=== PATIENT | female | born 1995 | race Caucasian/White ===

== ENCOUNTER 2018-05-26 23:20 | Outpatient (CLI) | payer OTHER, SELFPAY ==
[2017-02-18 11:46] VITALS: BMI 26.6
[2018-05-26 23:46] VITALS: BMI 27.6
[2018-05-27 00:15] LABS: Hematocrit 37.3 % (37-47); Hemoglobin 12.6 g/dl (12.0-15.0); Mean Corp Hgb Conc 33.8 g/gl (32-36); Mean Corpuscular Hgb 29.7 pg (27.0-32.0); Mean Platelet Vol. 9.8 fl (6.2-12.0); Platelet Count 208 K/mm3 (150-450); RBC Distribution Width CV 13.4 % (11.6-14.6); RBC Distribution Width SD 42.5 fl (35.1-43.9); Red Blood Count 4.24 M/mm3 (4.2-5.4); White Blood Count 9.8 K/mm3 (4.4-11.0)
[2018-05-27 00:17] LABS: Scan Indicated on CBC? Y/N NO
[2018-05-27 00:23] LABS: International Normalized Ratio 0.9; Prothrombin Time (Protime)PT. 12.4 SECONDS (11.7-14.9)
[2018-05-27 00:24] LABS: Partial Thromboplast Time 25.3 Seconds (24.1-36.2)
[2018-05-27 00:38] LABS: AST(SGOT) 24 U/L (15-37); Alanine Aminotransfer ALT/SGPT 13 U/L (13-56); Creatinine, Serum 0.82 mg/dL (0.55-1.02); EST Glomerular Filtration Rate 91 mL/min (>60); Est Glom Filt Rate - Afr Amer 110 mL/min (>60); Estimated Creatinine Clearance 96.01 ml/min; Uric Acid 5.7 mg/dL (2.6-6.0)
[2018-05-27 00:54] LABS: Protein, Urine (Random) 10.2 mg/dL (<11.9); Protein:Creat Ratio 453 mg/g CRE (0-200)
--- NOTE | 2018-06-02 13:08 | OB.TRI.PN ---
Progress Notes Date of Service: 05/26/18 Progress Note: Pt presented for r/o pre-eclampsia and was discharge home. Laboratory Studies: Laboratory Tests 05/27/18 05/27/18 05/27/18 Range/Units 00:00 00:00 00:00 WBC (4.4-11.0) K/mm3 RBC (4.2-5.4) M/mm3 Hgb (12.0-15.0) g/dl Hct (37-47) % MCV (81-99) fL MCH (27.0-32.0) pg MCHC (32-36) g/gl RDW (11.6-14.6) % RDW Differential (35.1-43.9) fl Plt Count (150-450) K/mm3 MPV (6.2-12.0) fl PT 12.4 (11.7-14.9) SECONDS INR 0.9 APTT 25.3 (24.1-36.2) Seconds Creatinine 0.82 (0.55-1.02) mg/dL Estim Creat Clear Calc 96.01 ml/min Est GFR (MDRD) Af Amer 110 (>60) mL/min Est GFR (MDRD) Non-Af 91 (>60) mL/min Uric Acid 5.7 (2.6-6.0) mg/dL AST 24 (15-37) U/L ALT 13 (13-56) U/L U Random Total Protein 10.2 (<11.9) mg/dL Urine Creatinine 22.50 (NO RANGE EST.) mg/dL Protein/Creatinin Ratio 453 H (0-200) mg/g CRE 05/27/18 Range/Units 00:00 WBC 9.8 (4.4-11.0) K/mm3 RBC 4.24 (4.2-5.4) M/mm3 Hgb 12.6 (12.0-15.0) g/dl Hct 37.3 (37-47) % MCV 88.0 (81-99) fL MCH 29.7 (27.0-32.0) pg MCHC 33.8 (32-36) g/gl RDW 13.4 (11.6-14.6) % RDW Differential 42.5 (35.1-43.9) fl Plt Count 208 (150-450) K/mm3 MPV 9.8 (6.2-12.0) fl PT (11.7-14.9) SECONDS INR APTT (24.1-36.2) Seconds Creatinine (0.55-1.02) mg/dL Estim Creat Clear Calc ml/min Est GFR (MDRD) Af Amer (>60) mL/min Est GFR (MDRD) Non-Af (>60) mL/min Uric Acid (2.6-6.0) mg/dL AST (15-37) U/L ALT (13-56) U/L U Random Total Protein (<11.9) mg/dL Urine Creatinine (NO RANGE EST.) mg/dL Protein/Creatinin Ratio (0-200) mg/g CRE
== END 2018-05-27 03:57 | disposition home or self-care (01) ==
LOC: WPOUT 23:32 → WP 23:32
PROVIDERS: Advanced Practice Midwife; Referring Provider Obstetrics & Gynecology; Visit Provider Obstetrics & Gynecology
DX: Z34.90 Encounter for supervision of normal pregnancy, unspecified, unspecified trimester (principal)
CPT/HCPCS: 36415; 59025; 59050; 82565; 82570; 84156; 84450; 84460; 84550; 85027; 85610; 85730; 99218; G0378

== ENCOUNTER 2018-05-30 07:00 | Inpatient (IN) | payer OTHER, SELFPAY ==
[2018-05-30 07:26] VITALS: BMI 26.9
[2018-05-30] MEDS: Lactated Ringers 1,000 ML 50 ML IV ×2 (07:30→12:32)
[2018-05-30 08:00] LABS: Absolute Neutrophil Count 5.5 X10^3/uL (2.0-7.7); Basophil# 0.03 X10^3/uL; Basophil% 0.3 % (0-1); Eosinophil# 0.11 X10^3/uL; Eosinophils% 1.2 % (0-5); Hematocrit 36.4 % (37-47); Hemoglobin 12.5 g/dl (12.0-15.0); Lymphocyte % 26.2 % (19-41); Mean Corp Hgb Conc 34.3 g/gl (32-36); Mean Corpuscular Hgb 29.9 pg (27.0-32.0); Mean Corpuscular Volume 87.1 fL (81-99); Monocyte# 0.99 X10^3/uL; Monocyte% 10.8 % (0-10); Neutrophil # 5.48 X10^3/uL (2.7-7.7); Platelet Count 199 K/mm3 (150-450); RBC Distribution Width CV 13.2 % (11.6-14.6); Red Blood Count 4.18 M/mm3 (4.2-5.4); White Blood Count 9.2 K/mm3 (4.4-11.0)
[2018-05-30 08:01] LABS: POSITIVE COUNT NO; POSITIVE DIFFERENTIAL NO; POSITIVE MORPHOLOGY NO
[2018-05-30] MEDS: Oxytocin 30 units/NS 500 ml 30 UNITS/500 ML IV.SOLN IV (08:05)
--- NOTE | 2018-05-30 11:46 | PCM.HP.OB ---
History Date of Admission: 05/30/18 Final MARY: 05/30/18 Final MARY Source: US <20 weeks Gestational age: 40 Weeks and 0 Days History of this : This is a 22 year-old, G [3], P [1], at 40 weeks gestational age presenting for elective IOL for maternal anxiety. Patient initiated care @ 9+2 weeks x 15 visits. Patient course has been uncomplicated. Allergies No Known Allergies Allergy (Verified 02/18/17 11:44) Home Medications: Home Medications Vit No.130/Iron/Folic [ Tablet] 1 each PO DAILY 02/18/17 Aspirin, Baby 81 mg PO DAILY 05/26/18 Smoking Status: Never smoker Alcohol: None Number of Fetus(es): 1 Heart Tracing: Baseline 140, moderate variability, + accels, no decels TOCO Analysis: Ctx q 2-3 minutes apart lasting 60 seconds, palpate mild to moderate in strength History Past Pregnancies: Past Pregnancies Delivery Date Name GA/Weeks Outcome Route Weight Gender Labor Length Anesthesia Delivery Location Provider FODae 01/2017 39+4 wks Live 6#14oz F Epidural [facility] [place] SENIOR ACCOUNT DIRECTOR-CNM 07/2017 10+3 wks SAB Labs: GBS negative, Urine Culture Negative, 1 hour GCT = 121, CBC WNL x 2, Sequential screening Negative, Syphilis NR, HIV NR, HepBsAg Neg, Rubella Immune, O+, Abs Neg, Urine Tox Negative, GC/CT Neg/Neg Expected Infant Delivery Method: Spontaneous Vaginal Describe any other labor & delivery plans:: Epidural Number of Visits: 15 Review of Systems Constitutional: Denies: Chills, Fever, Weight Change HEENT: Denies: Head Aches, Sinus Congestion, Sinus Drainage Cardiovascular: Denies: Chest Pain, Palpitations Respiratory: Denies: Cough, Shortness of breath at rest, Sputum production Gastrointestinal: Denies: Abdominal Pain, Nausea, Vomiting Genitourinary: Denies: Dysuria Musculoskeletal: Denies: Joint Pain, Joint Tenderness Skin: Denies: Rash, Wounds Neurological: Denies: Numbness, Tingling, Focal weakness Psychiatric: Denies: Anxiety, Depression, Homicidal Ideations, Suicidal Ideations Hematologic/ Lymphatic: Denies: Easy Bruising, Easy Bleeding Physical Exam Vitals: VSS, Afebrile - patient is normotensive General: Alert, Oriented x3, No apparent distress HEENT: Atraumatic, Normocephalic. Negative for: Thyromegaly, Lymphadenopathy Cardiovascular: Regular rate, Regular Rhythm Lungs: Normal air movement Abdomen: Soft, Non Tender, Gravid - EFW = 7.5# Extremities:: No edema Neurological: Deep Tendon Reflexes 2+/4 and Symmetrical, Neuro grossly intact INDUSTRIAL FABRIC CUTTER: Normal external genitalia. Negative for: Vulvar lesions Estimated gestational size: Appropriate for gestational size Presentation: Cephalic Cervix Dilation (cm): 4 - per filler picker Station: -3 Effacement (%): 60 Assessment/Plan All Active Problems Gestational [-induced] hypertension without significant proteinuria, third trimester (Resolved) This is a 22 year-old, G [3], P [1], at 40 weeks gestational age, Elective IOL for Maternal Anxiety P: 1) Admit patient - IOL with pitocin planned 2) Epidural by request 3) Consider AROM once patient has received epidural 4) Dr. Fransico BURGESS back-up OB notified of patient admission 5) Continue present management at this time Janice AUGUSTINE
--- NOTE | 2018-05-30 11:51 | HP.PCM_ITS ---
History Date of Admission: 05/30/18 Final MARY: 05/30/18 Final MARY Source: US <20 weeks Gestational age: 40 Weeks and 0 Days History of this : This is a 22 year-old, G [3], P [1], at 40 weeks gestational age presenting for elective IOL for maternal anxiety. Patient initiated care @ 9+2 weeks x 15 visits. Patient course has been uncomplicated. Allergies No Known Allergies Allergy (Verified 02/18/17 11:44) Home Medications: Home Medications Vit No.130/Iron/Folic [ Tablet] 1 each PO DAILY 02/18/17 Aspirin, Baby 81 mg PO DAILY 05/26/18 Smoking Status: Never smoker Alcohol: None Number of Fetus(es): 1 Heart Tracing: Baseline 140, moderate variability, + accels, no decels TOCO Analysis: Ctx q 2-3 minutes apart lasting 60 seconds, palpate mild to moderate in strength History Past Pregnancies: Past Pregnancies Delivery Date Name GA/Weeks Outcome Route Weight Gender Labor Length Anesthesia Delivery Location Provider FOD[facility] 01/2017 39+4 wks Live 6#14oz F Epidural [facility] [place] TRUCK DRIVER'S OFFSIDER-CNM 07/2017 10+3 wks SAB Labs: GBS negative, Urine Culture Negative, 1 hour GCT = 121, CBC WNL x 2, Sequential screening Negative, Syphilis NR, HIV NR, HepBsAg Neg, Rubella Immune, O+, Abs Neg, Urine Tox Negative, GC/CT Neg/Neg Expected Infant Delivery Method: Spontaneous Vaginal Describe any other labor & delivery plans:: Epidural Number of Visits: 15 Review of Systems Constitutional: Denies: Chills, Fever, Weight Change HEENT: Denies: Head Aches, Sinus Congestion, Sinus Drainage Cardiovascular: Denies: Chest Pain, Palpitations Respiratory: Denies: Cough, Shortness of breath at rest, Sputum production Gastrointestinal: Denies: Abdominal Pain, Nausea, Vomiting Genitourinary: Denies: Dysuria Musculoskeletal: Denies: Joint Pain, Joint Tenderness Skin: Denies: Rash, Wounds Neurological: Denies: Numbness, Tingling, Focal weakness Psychiatric: Denies: Anxiety, Depression, Homicidal Ideations, Suicidal Ideations Hematologic/ Lymphatic: Denies: Easy Bruising, Easy Bleeding Physical Exam Vitals: VSS, Afebrile - patient is normotensive General: Alert, Oriented x3, No apparent distress HEENT: Atraumatic, Normocephalic. Negative for: Thyromegaly, Lymphadenopathy Cardiovascular: Regular rate, Regular Rhythm Lungs: Normal air movement Abdomen: Soft, Non Tender, Gravid - EFW = 7.5# Extremities:: No edema Neurological: Deep Tendon Reflexes 2+/4 and Symmetrical, Neuro grossly intact FUSION ANALYST: Normal external genitalia. Negative for: Vulvar lesions Estimated gestational size: Appropriate for gestational size Presentation: Cephalic Cervix Dilation (cm): 4 - per life cycle assessment analyst Station: -3 Effacement (%): 60 Assessment/Plan All Active Problems Gestational [-induced] hypertension without significant proteinuria, third trimester (Resolved) This is a 22 year-old, G [3], P [1], at 40 weeks gestational age, Elective IOL for Maternal Anxiety P: 1) Admit patient - IOL with pitocin planned 2) Epidural by request 3) Consider AROM once patient has received epidural 4) Dr. Fransico BURGESS back-up OB notified of patient admission 5) Continue present management at this time Janice AUGUSTINE
[2018-05-30] MEDS: fentaNYL-bupivacaine (epidural) 100 ML BAG EPIDURAL (12:32)
--- NOTE | 2018-05-30 13:57 | PCM.PN.OB ---
Subjective: Patient comfortable after receiving epidural. Reports desire for SVE with option for AROM at this time. Patient denies any feelings of rectal pressure currently. Objective: VSS, Afebrile FHT baseline 125, moderate variability, + accels, no decels CTX q 2-3 minutes, palpate moderately strong SVE = 6/60/-2, cervix very soft and stretchy, midposition - Physical Exam General: Alert, Oriented x3, Cooperative HEENT: Atraumatic, PERRLA, EOMI, Normocephalic Neck: Supple Lungs: Normal air movement Cardiovascular: Regular rate, No murmurs Abdomen: Soft, Non Tender Extremities: No edema, Capillary Refill Less than 3 Seconds Skin: No rashes, No breakdown Musculoskeletal: No Tenderness to Palpation of Joints or Extremities Neurological: Cranial nerves II-XII grossly intact, - - Rt. upper eye lid slightly swollen - patient denies scotoma, denies numbness or tingling in face, EOMs intact Psych/Mental Status: Normal Affect, Appropriate Weight: 167 lb Body Mass Index (BMI) 26.9 Intake and Output for Last 24 Hours 05/28/18 05/29/18 05/30/18 23:59 23:59 23:59 Output Total 675 / 675 Balance -675 / -675 Laboratory Tests Past 24 Hrs 05/30/18 05/30/18 07:35 07:35 WBC 9.2 RBC 4.18 L Hgb 12.5 Hct 36.4 L MCV 87.1 MCH 29.9 MCHC 34.3 RDW 13.2 RDW Differential 40.0 Plt Count 199 MPV 10.0 Immature Gran % (Auto) 1.500 H Neut % (Auto) 60.0 Lymph % (Auto) 26.2 [place] % (Auto) 10.8 H Eos % (Auto) 1.2 Baso % (Auto) 0.3 Absolute Neuts (auto) 5.5 Absolute Lymphs (auto) 2.40 Total Counted Not Reportable Blood Type O POSITIVE Antibody Screen NEGATIVE Medical Necessity - Tobacco Use Smoking Status: Never smoker Assessment/Plan All Active Problems Gestational [-induced] hypertension without significant proteinuria, third trimester (Resolved) 22 y/o @ 40 weeks, IOL for Maternal Anxiety, Category I FHT, AROM scant bloody fluid P: 1) Continue present management 2) Anticipate Janice AUGUSTINE
[2018-05-30] MEDS: Oxytocin 30 units/NS 500 ml 30 UNITS/500 ML IV.SOLN 334 UNITS IV (17:02)
--- NOTE | 2018-05-30 17:19 | PCM.OPRPT ---
Report of Operation Date of Procedure: 05/30/18 Pre-Operative Diagnosis: IOL for Maternal Anxiety at 40 weeks Post-Operative Diagnosis: of viable boy baby Surgery/Procedure Performed:: Vaginal Delivery Vaginal Delivery Maternal Presentation: Active Labor Method of Induction: Pitocin Amniotic Membrane Rupture Type: Artificial Amniotic Fluid Description: Bloody Final MARY: 05/30/18 Final MARY Source: [place] <20 weeks Gestational age: 40 Weeks and 0 Days Date of Procedure: 05/30/18 Pre-Operative Diagnosis: IOL for maternal anxiety at 40 weeks Post-Operative Diagnosis: of viable boy baby Surgery/ Procedure Performed: Spontaneous Vaginal Delivery Anesthesiologist: Patt Maxwell Type of Anesthesia: Epidural Description of Procedure: Patient found to be complete/complete/+1 station. Patient felt urge to push and pushed well under epidural analgesia and delivered a viable boy baby over intact perineum. Infant with spontaneous cry and respirations, mouth and nose bulb suctioned. placed on maternal abdomen where it was dried and stimulated. Apgars 8 and 9. weight pending. Umbilical cord clamped and cut once it stopped pulsing. Placenta delivered intact via Toribio Mechanism; placenta with 3VC and notable for velamentous cord insertion. EBL = 100cc. FF to massage, midline and 4FB below umbilicus. 3rd stage IV pitocin infusing per active management of 3rd stage protocol. Upon inspection of vaginal vault, intact perineum no repair indicated. Sponge count correct. Baby to breast, bonding and [id number] initiated. Presentation: Vertex, [place] Placental Delivery Description: Spontaneous Placenta Disposition: [facility] Cord Vessel Description: 3 Vessels Cord Entanglement: None Estimated Blood Loss: 100 A gender: Male (1 minute): 8 (5 minute): 9 Episiotomy Description: None Laceration: None Medications given after delivery: IV Pitocin Complications: None
[2018-05-30] MEDS: Oxytocin 30 units/NS 500 ml 30 UNITS/500 ML IV.SOLN 167 UNITS IV (17:33)
[2018-05-30] MEDS: Ibuprofen 600 MG Tablet PO (19:42)
[2018-05-30 20:01] VITALS: BP 116/73; PULSE 105; RESP 18; TEMP 37.4; O2SAT 98
[2018-05-31] VITALS (7 sets, daily range): BP systolic 105–119; BP diastolic 61–78; PULSE 76–93; RESP 16–18; TEMP 36.3–37.1; O2SAT 97
[2018-05-31] MEDS: Acetaminophen 500 MG Tablet 1000 MG PO (02:13)
[2018-05-31] MEDS: Ibuprofen 600 MG Tablet PO ×3 (08:30→22:45)
--- NOTE | 2018-05-31 16:47 | PCM.PN.OB ---
Subjective: Doing well per patient and nursing staff. Ambulating and taking PO without difficulty. Voiding and having bowel movement. Pain controlled with Motrin and Tylenol. , hand expressing and spoon feeding . with tachypnea and possible transfer to special care. Denies any headaches, visual changes, chest pain, increased SOB or other concerns. Planning D/C home tomorrow. - Physical Exam General: Alert, Oriented x3, Cooperative HEENT: Normocephalic Neck: Trachea Midline Lungs: Clear to auscultation, Normal air movement, No rhonchi Cardiovascular: Regular rate, Regular Rhythm, No murmurs Abdomen: Bowel Sounds Present, Soft, - - Fundus firm 2 below U Extremities: No edema Neurological: Deep Tendon Reflexes 2+/4 and Symmetrical Psych/Mental Status: Normal Affect, Appropriate Vital Signs Temp Pulse Resp BP Pulse Ox 98.0 F 76 16 119/78 98 05/31/18 14:49 05/31/18 14:49 05/31/18 14:49 05/31/18 14:49 05/30/18 20:01 Oxygen Delivery Method Room Air Weight: 167 lb Body Mass Index (BMI) 26.9 Intake and Output for Last 24 Hours 05/29/18 05/30/18 05/31/18 23:59 23:59 23:59 Output Total 2625 / 2625 Balance -2625 / -2625 Medical Necessity - Tobacco Use Smoking Status: Never smoker Assessment/Plan All Active Problems Gestational [-induced] hypertension without significant proteinuria, third trimester (Resolved) A:PPD #1 P: 1) Routine care 2) Pain management 3) D/C home tomorrow.
--- NOTE | 2018-05-31 20:11 | NURSING ---
Report given to ANGELES Singh at 1600 on mother and .
[2018-06-01 02:05] VITALS: BP 96/51; PULSE 80; RESP 20; TEMP 36.9
[2018-06-01 04:52] VITALS: BP 125/82; PULSE 78; RESP 18; TEMP 36.6
[2018-06-01] MEDS: Ibuprofen 600 MG Tablet PO ×2 (05:05→12:39)
--- NOTE | 2018-06-01 07:50 | DCINST_ITS ---
Discharge Diet: No Restrictions Discharge Activity: Return to Normal Activity, May not drive while taking narcotic pain medications., May Shower May resume sexual activity in: 4-6 weeks Additional Activity Instructions:: Nothing in the vagina for 4-6 weeks. You may return to work/school in 6 weeks. Call your doctor if your incision/area has: Continuous Slow Oozing, Sudden Increased Bleeding, Increased Pain/ Swelling, Increased Redness, Foul Smelling Discharge Call your doctor if you observe: Fever of 101 or Higher, Inability to urinate, Inability to have a bowel movement, Using more than one pad per hour Additional Instructions: If you experience any of the following, contact your healthcare provider. * Bleeding that soaks a pad every hour for 2 hours * Fever 100.4 or higher * Unrelieved incision or abdominal pain * Swelling, redness, discharge or bleeding from your incision or episiotomy site * Your incision begins to separate * Problems urinating (including inability to urinate or burning while urinating). * Visual changes * Severe headache * Flu-like symptoms * Pain or redness in one of both of your breasts * Pain, warmth, tenderness or swelling in your legs, especially the calf area * Frequent nausea and vomiting * Symptoms of depression or anxiety If you experience any of the following, call 911 or go to the nearest Emergency Room. * Chest pain * Problems breathing * Seizure activity * Partial or complete paralysis of a body part, slurred speech, weakness or drooping of the face, or a sudden inability to walk or hold your balance Allergies/Adverse Reactions: Allergies No Known Allergies Allergy (Verified 02/18/17 11:44) Medications to take at Discharge Vit No.130/Iron/Folic [ Tablet] 1 each PO DAILY 02/18/17 Acetaminophen [Tylenol] 1,000 mg PO Q8H PRN PRN tablet 06/01/18 Ibuprofen [Motrin] 600 mg PO Q6H PRN PRN tablet 06/01/18 Please Follow Up With: Janice Bloom CNM When: Call to make an appointment with your provider in 2 weeks and 6 weeks . Primary Care Physician: Care Physician,No Primary [Primary Care Provider] - Test Results: Test results from this visit will be discussed in further detail at your follow- up appointment, if applicable.
--- NOTE | 2018-06-01 07:54 | PN.OBGYN_ITS ---
Subjective: Patient sitting up in bed, in nursery for monitoring of tachypnea. unlikely to be discharged to home today. Anticipate patient to be discharged with access to hospitality room if available. Patient denies any issues or complaints, denies issues with urination or ambulation. Reports she is pumping breastmilk at this time without difficulty. Objective: VSS, Afebrile Nipples without cracks or blisters, no ecchymoses Abdomen NT x 4 quadrants, FF midline 3FB below umbilicus +2/4 reflexes in LE, no edema noted intact perineum, scant rubra lochia negative calf tenderness to palpation - Physical Exam General: Alert, Oriented x3, Cooperative HEENT: Atraumatic, Normocephalic Neck: Supple Lungs: Normal air movement Cardiovascular: Regular rate, No murmurs Abdomen: Soft, Non Tender Extremities: No edema, Capillary Refill Less than 3 Seconds Skin: No rashes, No breakdown Musculoskeletal: No Tenderness to Palpation of Joints or Extremities Neurological: Cranial nerves II-XII grossly intact Psych/Mental Status: Normal Affect, Appropriate Vital Signs Temp Pulse Resp BP Pulse Ox 98 F 78 18 125/82 H 97 06/01/18 04:52 06/01/18 04:52 06/01/18 04:52 06/01/18 04:52 05/31/18 17:09 Oxygen Delivery Method Room Air Weight: 167 lb Body Mass Index (BMI) 26.9 Intake and Output for Last 24 Hours 05/30/18 05/31/18 06/01/18 23:59 23:59 23:59 Output Total 2625 / 2625 Balance -2625 / -2625 Medical Necessity - Tobacco Use Smoking Status: Never smoker Assessment/Plan All Active Problems Gestational [-induced] hypertension without significant proteinuria, third trimester (Resolved) 22 y/o now, s/p , PPD #2, Normal PP Course P: 1) Discharge patient to home, may use hospitality room if available if baby is not discharged 2) Anticipatory PP teaching done 3) RTC at 2 and 6 weeks PP to [email or web address] for visits Janice AUGUSTINE
[2018-06-01 08:45] VITALS: BP 115/82; PULSE 91; RESP 18; TEMP 36.3
[2018-06-01 12:00] VITALS: BP 114/73; PULSE 97; RESP 18; TEMP 36.9
== END 2018-06-01 14:15 | disposition home or self-care (01) | DRG 807 ==
PROVIDERS: Admitting Provider Obstetrics & Gynecology; Visit Provider Obstetrics & Gynecology
DX: O99.344 Other mental disorders complicating childbirth (principal); Z37.0 Single live birth; O48.0 Post-term pregnancy; Z3A.40 40 weeks gestation of pregnancy; O43.123 Velamentous insertion of umbilical cord, third trimester; F41.9 Anxiety disorder, unspecified
CPT/HCPCS: 59025; 59050; 85025; 86850; 86900; 99218; J7120; G0378

== ENCOUNTER → 2023-02-13 | Outpatient (CLI) | payer BC, SELFPAY ==
[2023-02-13 11:15] LABS: Glucose Challenge Gest 1H 50g 167 mg/dL (70-140)
== END | disposition home or self-care (01) ==
LOC: LAB 09:19
PROVIDERS: Referring Provider Advanced Practice Midwife; Visit Provider Advanced Practice Midwife
DX: Z34.93 Encounter for supervision of normal pregnancy, unspecified, third trimester (principal); Z3A.31 31 weeks gestation of pregnancy
CPT/HCPCS: 36415; 82950

== ENCOUNTER → 2023-03-03 | Outpatient (CLI) | payer BC, SELFPAY ==
[2023-03-03 10:53] LABS: Hematocrit 36.2 % (37-47); Hemoglobin 12.6 g/dL (12.0-15.0); Mean Corp Hgb Conc 34.8 g/dL (32-36); Mean Corpuscular Hgb 31.9 pg (27.0-32.0); Mean Corpuscular Volume 91.6 fL (81-99); Mean Platelet Vol. 8.9 fl (6.2-12.0); Platelet Count 167 K/mm3 (150-450); RBC Distribution Width CV 12.8 % (11.6-14.6); RBC Distribution Width SD 42.3 fl (35.1-43.9); Red Blood Count 3.95 M/mm3 (4.2-5.4); White Blood Count 9.3 K/mm3 (4.4-11.0)
--- OUTSIDE RECORDS SUMMARY | 2023-03-03 10:57 | XMS RPT_ITS | CCD ---
Author Name Unknown Address [address] [place] [address] Organization [facility] Care Team Providers Care Administrative Assistant Data Entry Name Role Phone Claudine Bateman Unavailable Unavailable Claudine Bateman Unavailable Unavailable Claudine Bateman Unavailable Unavailable Unavailable Primary Care Provider UnavailBRYNN Flynn Attending Unavailable ROCIO DAVIS Referring Unavailable ROCIO DAVIS Referring Unavailable ROCIO DAVIS Referring Unavailable EVELYNE CANTOR Attending Unavailable ROCIO DAVIS Attending Unavailable BRYNN GONZALES Attending Unavailable ROCIO DAVIS Referring Unavailable EVELYNE CANTOR Attending Unavailable ROCIO DAVIS Attending Unavailable BRYNN GONZALES Attending Unavailable ROCIO DAVIS Referring Unavailable EVELYNE CANTOR Attending Unavailable BRYNN GONZALES Referring Unavailable Medications Completed/Discontinued Medications Medication Drug Class(es) Dates Sig (Normalized) Sig (Original) aspirin 81 mg delayed release oral tablet (9 sources) Platelet Aggregation Inhibitor, Nonsteroidal Anti-inflammatory Drug Start: 10-03-2022 take 1 tablet by mouth once daily aspirin, enteric coated (ASPIRIN, ENTERIC COATED) 81 mg EC tablet Take 1 tablet by mouth once daily. 0 10/03/2022 Active Problems Active Problems Problem Classification Problem Date Documented Da te Episodic/Chronic Miscellaneous mental health disorders (10 sources) Eating disorder; Translations: [Eating disorder, unspecified] Onset: 09-10-2022 09-10-2022 Chronic Other complications of (1 source) Supervision of with other poor reproductive or obstetric history, unspecified trimester; Translations: [ with other poor obstetric history] Episodic Other complications of (1 source) Supervision of high risk , unspecified, second trimester; Translations: [Supervision of high risk in second trimester] Onset: 01-20-2023 Episodic Other screening for suspected conditions (not mental disorders or infectious disease) (1 source) ultrasound increased nuchal translucency; Translations: [Encounter for screening for nuchal translucency] 10-03-2022 Episodic Residual codes; unclassified (2 sources) Gestation period, 12 weeks; Translations: [12 weeks gestation of ] 10-03-2022 Episodic Residual codes; unclassified (1 source) Gestation period, 20 weeks; Translations: [20 weeks gestation of ] 11-25-2022 Episodic Residual codes; unclassified (1 source) Gestation period, 24 weeks; Translations: [24 weeks gestation of ] 12-23-2022 Episodic Residual codes; unclassified (1 source) Gestation period, 28 weeks; Translations: [28 weeks gestation of ] 01-20-2023 Episodic Residual codes; unclassified (1 source) Gestation period, 30 weeks; Translations: [30 weeks gestation of ] 02-05-2023 Episodic Residual codes; unclassified (1 source) 24 weeks gestation of ; Translations: [24 weeks gestation of ] Onset: 01-20-2023 Episodic Past or Other Problems Problem Classification Problem Date Documented Date Episodic/Chronic Hemorrhage during ; abruptio placenta; placenta previa (3 sources) Low lying placenta; Translations: [Low lying placenta NOS or without hemorrhage, unspecified trimester] Onset: 08-12-2019 11-03-2019 Episodic Other complications of ; puerperium affecting management of mother (3 sources) Anomaly of kidney; 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, single gestation] Onset: 11-29-2019 12-21-2019 Episodic Other complications of (3 sources) Finding of pattern of ; Translations: [Supervision of other high risk pregnancies, unspecified trimester] Onset: 07-16-2017 12-21-2019 Episodic Other complications of (14 sources) High risk ; Translations: [Supervision of other high risk pregnancies, first trimester] Onset: 09-10-2022 09-10-2022 Episodic Other and delivery including normal (7 sources) Normal labor; Translations: [Encounter for full-term uncomplicated delivery] Onset: 12-21-2019 12-22-2019 Episodic Residual codes; unclassified (1 source) FH: Congenital heart disease; Translations: [Family history of other congenital malformations, deformations and chromosomal abnormalities] Onset: 07-25-2016 12-21-2019 Episodic Residual codes; unclassified (13 sources) History of gestational hypertension; Translations: [Personal history of other complications of , childbirth and the puerperium] Onset: 07-16-2017 12-21-2019 Episodic Residual codes; unclassified (13 sources) H/O: depression; Translations: [Personal history of other complications of , childbirth and the puerperium] Onset: 05-12-2019 12-21-2019 Episodic Residual codes; unclassified (12 sources) FH: Congenital anomaly; Translations: [Family history of other congenital malformations, deformations and chromosomal abnormalities] Onset: 07-25-2016 Episodic Residual codes; unclassified (1 source) 16 weeks gestation of ; Translations: [16 weeks gestation of ] Onset: 10-31-2022 Episodic Residual codes; unclassified (1 source) Personal history of other complications of , childbirth and the puerperium; Translations: [History of gestational hypertension] Onset: 08-18-2022 Episodic Results Test Name Value Interpretation Reference Range Facil ity Vital Signs Date Time Vital Sign Value Performing Clinician Patrick garcia 02-05-2023 11:24-0500 Body weight 64.23 kg Brynn Gonzales APRN.CNYesica Work Phone: [facility] 02-05-2023 11:24-0500 Diastolic blood pressure 72 mm[Hg] Brynn Gonzales TOILET ATTENDANTDAJUAN Work Phone: [facility] 02-05-2023 11:24-0500 Systolic blood pressure 106 mm[Hg] Brynn Gonzales TOILET ATTENDANTDAJUAN Work Phone: [facility] 01-20-2023 10:38-0500 Body weight 64.05 kg Evelyne Cantor MD Work Phone: [facility] 01-20-2023 10:38-0500 Diastolic blood pressure 62 mm[Hg] Evelyne Cantor MD Work Phone: [facility] 01-20-2023 10:38-0500 Systolic blood pressure 100 mm[Hg] Evelyne Cantor MD Work Phone: [facility] 12-23-2022 10:16-0400 Body weight 63.05 kg Rocio Davis APRN.CNM Work Phone: [facility] 12-23-2022 10:16-0400 Diastolic blood pressure 66 mm[Hg] Rocio Davis TOILET ATTENDANT.CNM Work Phone: [facility] 12-23-2022 10:16-0400 Systolic blood pressure 108 mm[Hg] Rocio Davis TOILET ATTENDANT.CNM Work Phone: [facility] 11-25-2022 10:56-0400 Body weight 61.15 kg Evelyne Cantor MD Work Phone: [facility] 11-25-2022 10:56-0400 Diastolic blood pressure 60 mm[Hg] Evelyne Cantor MD Work Phone: [facility] 11-25-2022 10:56-0400 Systolic blood pressure 98 mm[Hg] Evelyne Cantor MD Work Phone: [facility] 10-03-2022 10:36-0400 Body weight 58.06 kg Evelyne Cantor MD Work Phone: [facility] 10-03-2022 10:36-0400 Diastolic blood pressure 64 mm[Hg] Evelyne Cantor MD Work Phone: [facility] 10-03-2022 10:36-0400 Systolic blood pressure 106 mm[Hg] Evelyne Cantor MD Work Phone: [facility] Encounters Encounter Date Encounter Type Care Provider Facility Start: 02-10-2023 ambulatory Brynn agarwal TOILET ATTENDANT.CNM Work Phone: OB/Gynecology Procedures Date Procedure Procedure Detail Performing Clinician Start: 02-05-2023 URINE OB DIP B/O Renée Gonzales TOILET ATTENDANT.CNM Work Phone: Start: 01-20-2023 URINE OB DIP B/O Evelyne Cantor MD Work Phone: Start: 11-25-2022 URINE OB DIP B/O Evelyne Cantor MD Work Phone: Start: 10-03-2022 Antibody screen HARIS GONZALES Plan of Treatment Date Care Activity Detail Author Start: 04-16-2028 Urine microalbumin profile [facility] Start: 09-03-2025 PAP TESTING PAP TESTING [facility] Start: 09-03-2025 Screening for malignant neoplasm of cervix Pap Testing [facility] Start: 02-16-2023 RSV Vaccine (1 - Risk 1-dose series) RSV Vaccine (1 - Risk 1-dose series) [facility] Start: 12-23-2022 End: 03-24-2023 CBC W Auto Differential panel - Blood CBC + DIFF Lab Routine 24 weeks gestation of Supervision of high risk in second trimester Expected: 12/23/2022, Expires: 03/24/2023 [facility] Work Phone: Immunizations Immunization Date Immunization Notes Care Provider Fa [facility] 11-17-2019 influenza, injectabl e, quadrivalent, contains preservative Brynn Plotts TOILET ATTENDANT.CNM Work Phone: [facility] 11-17-2019 influenza virus vaccine, unspecified formulation Evelyne Cantor MD Work Phone: [facility] 04-16-2018 tetanus toxoid, redu gamaliel diphtheria toxoid, and acellular pertussis vaccine, adsorbed Brynn Plotts TOILET ATTENDANT.CNM Work Phone: [facility] Work Phone: 12-18-2017 influenza, injectabl e, quadrivalent, contains preservative Brynn Plotts TOILET ATTENDANT.CNM Work Phone: [facility] 02-20-2017 measles, mumps and rubella virus vaccine Brynn Plotts TOILET ATTENDANT.CNM Work Phone: [facility] Work Phone: 11-28-2016 influenza, injectabl e, quadrivalent, contains preservative Brynn Plotts TOILET ATTENDANT.CNM Work Phone: [facility] 11-28-2016 tetanus toxoid, redu gamaliel diphtheria toxoid, and acellular pertussis vaccine, adsorbed Brynn Plotts TOILET ATTENDANT.CNM Work Phone: [facility] Payers Date Payer Category Payer Unknown [id number] 2017 Unknown Unknown [id number] Social History Date Type Detail Facility Start: 11-08-2021 Tobacco smoking stat us FLIS Never smoked tobacco [facility] Start: 11-08-2021 Tobacco use and exposure Smokeless tobacco non-user [facility] Start: 11-08-2021 End: 02-05-2023 Alcohol intake Current non-drinker of alcohol (finding) [facility] Start: 05-12-2019 History SDOH Financial 5 [facility] Start: 05-12-2019 History SDOH Food Worry 1 [facility] Start: 05-12-2019 History SDOH Transpo rt Med 2 [facility] Start: 05-12-2019 Education 8 [facility] Start: 1995 Sex Assigned At Not on file C [facility] Start: 07-21-2022 [facility] Start: 03-23-2022 End: 09-03-2022 History of Social function [facility] Work Phone: Start: 03-23-2022 End: 09-03-2022 Tobacco use panel [facility] Work Phone: How hard is it for y ou to pay for the very basics like food, housing, medical care, and heating Not hard at all [facility] Work Phone: (I/We) worried wheth er (my/our) food would run out before (I/we) got money to buy more. Never true [facility] Work Phone: The thought of myles brower myself has occurred to me Never [facility] Start: 05-26-2019 Sexual orientation Heterosexual (maynor iglesias) [facility] Work Phone: Goals Date Patient Goal Desired Activity /State Personal health goal Clinical Notes 10-28-2017 to 02-13-2023 Telephone Encounter - Cris Zarate RN - 02/11/2023 8:34 AM ESTTelephone Encounter - Brynn Gonzales APRN.CNM - 02/11/2023 7:53 AM ESTPatient InstructionsPatient InstructionsPatient Instructions Note Date & Type Note Facility 02-13-2023 Note HNO ID: [id number] Author: Brynn Gonzales APRN.CNM Service: ? Author Type: Newspaper Manager Type: Progress Notes Filed: 02/13/2023 5:26 PM Note Text: Patient completed 1 hour GCT with Fresh Test at [facility]. Results were elevated at 167and she will need to complete a 3 hour test. Please notify her that she can order a 3 hour Fresh Test to use and we can send another order over to [facility] for blood draws. Please discuss with patient. Order placed. Brynn Gonzales APRN.CNM [facility] 02-11-2023 Miscellaneous Notes Order faxed to [facility]. Order signed. Please notify patient that she will need to complete at [facility]. Thank you. Brynn Gonzales APRN.CNM [facility] lab order to CP to sign documented in this encounter [facility] 02-05-2023 Miscellaneous Notes Alberto Howard is a 27 year old female who presents at 30w3d for a routine visit. Did not complete 1 hour GTC due to emesis. Does not want to try screening again. Discussed option of Fresh Test and she will look into purchasing. Discussed testing of after delivery if no maternal screening results or regular blood glucose levels being completed. Patient voiced understanding. Good movement. Denies headache, visual changes, chest pain, shortness of breath, vaginal bleeding, leakage of fluid, or dysuria. Feeling well, no complaints. Size equal to dates. 11 lbs TWG. PTL precautions reviewed. RTC in 2 weeks or sooner if needed. Brynn Gonzales APRN.CNM documented in this encounter [facility] 02-05-2023 Jimmie Shukla Cma - 02/05/2023 11:23 AM EST SEQUENTIAL SCREENINGS The [facility] offers sequential screenings for women who are interested in screenings for chromosomal abnormalities and certain defects during a . The sequential screen combines ultrasound and blood tests to determine the risk of chromosomal abnormalities, including Down's Syndrome (Trisomy 21) and Trisomy 18, as well as open neural tube defects including spina bifida. Ultrasound examination is performed between 11 weeks and 13 weeks gestational age. Blood tests are drawn after the ultrasound and again later in the between 15 and 21 weeks gestational age. Please let your physician know if you are interested in this testing. It will require an appointment with our organic preparation technician. This is not an ultrasound performed by a physician in our office during a routine visit. SIGNS AND SYMPTOMS OF LABOR 1. Contractions every 10 minutes or more often 2. Clear, pink, or brownish fluid (water) leaking from vagina 3. Feeling that baby is pushing down, pressure 4. Low, dull backache 5. Cramps that feel like a period 6. Cramps with or without diarrhea If you notice any of the above symptoms, contact our office at [phone] and ask to speak with a nurse. After hours, you can call doctors registry at [phone] OR call [facility] at [phone] and ask to have the doctor websphere consultant paged. If you consider this an emergency, dial 9-6-5 or go to your nearest emergency department. NEED HELP? Are you dealing with a violent or abusive relationship? Are you a victim of rape or sexual assult? Call [facility] ([place]) 24 hour Crisis Hotline: 575.309.6640 or 020-185-3001. MANUAL Your Guide to a Healthy manual is now on-line. Visit [email or web address] to download your free copy documented in this encounter [facility] 01-20-2023 Miscellaneous Notes KJ - VB No. LOF No. CTXS No. Movement: present. Other c/o: No. Medication list reviewed. Physical Exam See Flow Sheet Gen: no accute distress, well appearing Abd: soft, nontender, gravid A/P 28w1d Estimated Date of Delivery: 04/13/23 Labs: 28 week labs Declines Tdap Declines LARC as plans vasectomy PTL precautions reviewed, Kick counts reviewed. Evelyne Cantor MD documented in this encounter [facility] 01-20-2023 Instructions Masters MinisterioTeodora - 01/20/2023 10:32 AM EST SEQUENTIAL SCREENINGS The [facility] offers sequential screenings for women who are interested in screenings for chromosomal abnormalities and certain defects during a . The sequential screen combines ultrasound and blood tests to determine the risk of chromosomal abnormalities, including Down's Syndrome (Trisomy 21) and Trisomy 18, as well as open neural tube defects including spina bifida. Ultrasound examination is performed between 11 weeks and 13 weeks gestational age. Blood tests are drawn after the ultrasound and again later in the between 15 and 21 weeks gestational age. Please let your physician know if you are interested in this testing. It will require an appointment with our organic preparation technician. This is not an ultrasound performed by a physician in our office during a routine visit. SIGNS AND SYMPTOMS OF LABOR 1. Contractions every 10 minutes or more often 2. Clear, pink, or brownish fluid (water) leaking from vagina 3. Feeling that baby is pushing down, pressure 4. Low, dull backache 5. Cramps that feel like a period 6. Cramps with or without diarrhea If you notice any of the above symptoms, contact our office at [phone] and ask to speak with a nurse. After hours, you can call doctors registry at [phone] OR call [facility] at [phone] and ask to have the doctor websphere consultant paged. If you consider this an emergency, dial 9-1-1 or go to your nearest emergency department. NEED HELP? Are you dealing with a violent or abusive relationship? Are you a victim of rape or sexual assult? Call [facility] ([place]) 24 hour Crisis Hotline: 311.701.3438 or 239-723-2724. MANUAL Your Guide to a Healthy manual is now on-line. Visit [email or web address] to download your free copy documented in this encounter [facility] 12-23-2022 Miscellaneous Notes JERRY-S: Alberto Howard is a 27 year old female who presents at 24w1d with MARY:04/13/2023, by Last Menstrual Period for a routine visit. Good FM. Denies headache, visual changes, chest pain, shortness of breath, vaginal bleeding, leakage of fluid, or dysuria. Feeling nauseated every am , no emesis.no other complaints. Concerned with having weight taken, even if she doesn't see it she is having increased anxiety. Denies meal skipping. Did not see psychiatry or counseling. O: See flow sheet Gen: No apparent distress Abd: Gravid, nontender ASSESSMENT/PLAN: 1. 24 weeks gestation of 2. Supervision of high risk in second trimester P: PTL precautions reviewed and when to call RTO in 4 wk GTT, CBC offer Tdap next visit Encouraged small frequent meals, protein snack at HS or during the night when up to decrease nausea. Is not skipping meals. Has stopped taking Zofran since she found it to not help. Declines other medications. Reviewed importance of not skipping meals as she notices wt gain. Reviewed necessity of placenta, fluids, bl volume etc increasing as advances. Pt reports she does not want to see her wt gain on the scale.Will perform wt gain assessment at every other visit when RTO to decrease pt anxiety. Denies feelings of depression/anxiety at this time Declines offer of psychiatric eval for support at this time. Rocio Davis APRN.CNM documented in this encounter [facility] 12-23-2022 Instructions Jimmie Worthington Cma - 12/23/2022 10:15 AM EDT SEQUENTIAL SCREENINGS The [facility] offers sequential screenings for women who are interested in screenings for chromosomal abnormalities and certain defects during a . The sequential screen combines ultrasound and blood tests to determine the risk of chromosomal abnormalities, including Down's Syndrome (Trisomy 21) and Trisomy 18, as well as open neural tube defects including spina bifida. Ultrasound examination is performed between 11 weeks and 13 weeks gestational age. Blood tests are drawn after the ultrasound and again later in the between 15 and 21 weeks gestational age. Please let your physician know if you are interested in this testing. It will require an appointment with our organic preparation technician. This is not an ultrasound performed by a physician in our office during a routine visit. SIGNS AND SYMPTOMS OF LABOR 1. Contractions every 10 minutes or more often 2. Clear, pink, or brownish fluid (water) leaking from vagina 3. Feeling that baby is pushing down, pressure 4. Low, dull backache 5. Cramps that feel like a period 6. Cramps with or without diarrhea If you notice any of the above symptoms, contact our office at [phone] and ask to speak with a nurse. After hours, you can call doctors registry at [phone] OR call [facility] at [phone] and ask to have the doctor websphere consultant paged. If you consider this an emergency, dial 9-7-8 or go to your nearest emergency department. NEED HELP? Are you dealing with a violent or abusive relationship? Are you a victim of rape or sexual assult? Call [facility] ([place]) 24 hour Crisis Hotline: 677.894.2612 or 761-539-7315. MANUAL Your Guide to a Healthy manual is now on-line. Visit [email or web address] to download your free copy documented in this encounter [facility] 11-25-2022 Miscellaneous Notes KJ - No VB/LOF/ctxs. Reports FM. Feeling better with zofran & tolerating PO. Meds reviewed A&P: Anatomy US today Eating disorder - reassured patient that weight gain is normal & healthy Evelyne Cantor MD documented in this encounter [facility] 11-25-2022 Instructions Masters Teodora Mandel - 11/25/2022 10:51 AM EDT SEQUENTIAL SCREENINGS The [facility] offers sequential screenings for women who are interested in screenings for chromosomal abnormalities and certain defects during a . The sequential screen combines ultrasound and blood tests to determine the risk of chromosomal abnormalities, including Down's Syndrome (Trisomy 21) and Trisomy 18, as well as open neural tube defects including spina bifida. Ultrasound examination is performed between 11 weeks and 13 weeks gestational age. Blood tests are drawn after the ultrasound and again later in the between 15 and 21 weeks gestational age. Please let your physician know if you are interested in this testing. It will require an appointment with our organic preparation technician. This is not an ultrasound performed by a physician in our office during a routine visit. SIGNS AND SYMPTOMS OF LABOR 1. Contractions every 10 minutes or more often 2. Clear, pink, or brownish fluid (water) leaking from vagina 3. Feeling that baby is pushing down, pressure 4. Low, dull backache 5. Cramps that feel like a period 6. Cramps with or without diarrhea If you notice any of the above symptoms, contact our office at [phone] and ask to speak with a nurse. After hours, you can call doctors registry at [phone] OR call [facility] at [phone] and ask to have the doctor websphere consultant paged. If you consider this an emergency, dial 6-4-9 or go to your nearest emergency department. NEED HELP? Are you dealing with a violent or abusive relationship? Are you a victim of rape or sexual assult? Call [facility] ([place]) 24 hour Crisis Hotline: 284.959.1280 or 912-888-1853. MANUAL Your Guide to a Healthy manual is now on-line. Visit [email or web address] Guide to download your free copy documented in this encounter [facility] 10-13-2022 Miscellaneous Notes Pt notified and copy to L&D Kandy Campos LPN MaterniT 21 results reviewed and are negative. Gender is on report if patient does not desire to know she should not look at results! Thank you. Brynn Gonzales APRN.CNM 14w0d Patient viewed her [id number] results on ticcklehart. Asking for a provider to review and confirm normal results. Can you please review in KJ's absence. Thank you. Sidra Chatterjee RN documented in this encounter [facility] 10-03-2022 Miscellaneous Notes KJ - No VB/LOF/ctxs. She has some nausea but is tolerating PO. Also she has mild & intermittent headaches. A&P: NT with NIPT today PNB today H/o gestational hypertension - advised on 81mg aspirin Headaches - advised on magnesium oxide daily Evelyne Cantor MD documented in this encounter [facility] 10-03-2022 Instructions Adriana Gaffney Ma - 10/03/2022 10:12 AM EDT SEQUENTIAL SCREENINGS [facility] offers sequential screenings for women who are interested in screenings for chromosomal abnormalities and certain defects during a . The sequential screen combines ultrasound and blood tests to determine the risk of chromosomal abnormalities, including Down's Syndrome (Trisomy 21) and Trisomy 18, as well as open neural tube defects including spina bifida. Ultrasound examination is performed between 11 weeks and 13 weeks gestational age. Blood tests are drawn after the ultrasound and again later in the between 15 and 21 weeks gestational age. Please let your physician know if you are interested in this testing. It will require an appointment with our organic preparation technician. This is not an ultrasound performed by a physician in our office during a routine visit. SIGNS AND SYMPTOMS OF LABOR 1. Contractions every 10 minutes or more often 2. Clear, pink, or brownish fluid (water) leaking from vagina 3. Feeling that baby is pushing down, pressure 4. Low, dull backache 5. Cramps that feel like a period 6. Cramps with or without diarrhea If you notice any of the above symptoms, contact our office at [phone] and ask to speak with a nurse. After hours, you can call doctors registry at [phone] OR call [facility] at [phone] and ask to have the doctor websphere consultant paged. If you consider this an emergency, dial 9--1 or go to your nearest emergency department. NEED HELP? Are you dealing with a violent or abusive relationship? Are you a victim of rape or sexual assult? Call [facility] ([place]) 24 hour Crisis Hotline: 330.766.2340 or 813-518-1240. MANUAL Your Guide to a Healthy manual is now on-line. Visit [email or web address] Guide to download your free copy documented in this encounter [facility] 09-11-2022 Miscellaneous Notes Pt will have done at her next visit. Kandy Campos LPN NIPT ordered Evelyne Cantor MD Rocio Davis APRN.WANDERM sent to P [facility] Ob-Cage Fighter Pool Please call patient and offer MFM referral if she desires with NT US due to history of congenital ASD and hydronephrosis. Thanks, Rocio Davis APRN.CNM Spoke with pt and she is wanting to have [id number] done. Pt will then decide from that if she wants MFM appointment. Please advise. Kandy Campos LPN documented in this encounter [facility] 09-03-2022 Note HNO ID: [id number] Author: Rocio Davis APRN.SANJUANA Service: ? Author Type: Newspaper Manager Type: Progress Notes Filed: 09/10/2022 10:01 PM Note Text: INITIAL OB ASSESSMENT Temporary Administrative Assistant offered: Patient declines. Obstetric History T3 L3 SAB1 IAB0 Ectopic0 Multiple0 Live Births3 Name of Baby 1: Nichelle Date: 02/19/17 GA: 39w4d Delivery: Vaginal, Spontaneous Apgar1: 9 Apgar5: 9 Living: Living Name of Baby 2: Not recorded Date: 08/11/17 GA: 10w3d Delivery: SPONTANEOUS Apgar1: Not recorded Apgar5: Not recorded Living: Not recorded Name of Baby 3: Ruben Date: 05/30/18 GA: 40w0d Delivery: Vaginal, Spontaneous Apgar1: 8 Apgar5: 9 Living: Living Name of Baby 4: Ramone Date: 12/21/19 GA: 38w2d Delivery: Vaginal, Spontaneous Apgar1: 9 Apgar5: 9 Living: Living Name of Baby 5: Not recorded Date: Not recorded GA: Not recorded Delivery: Not recorded Apgar1: Not recorded Apgar5: Not recorded Living: Not recorded HPI: Alberto is a 27 year old White here to establish Obstetrical Care. Patient's last menstrual period was 07/07/2022 (approximate). from OB Dating Form. Cycles regular was unplanned but accepted Complaints: nausea and vomiting OB History T3 L3 SAB1 IAB0 Ectopic0 Multiple0 Live Births3 Previous history: Prior : never History of 4th degree laceration: No History of shoulder dystocia: No History of Hypertensive disorders including pre-eclampsia, chronic hypertension or gestational hypertension: yes GTN with first child History of gestational diabetes: No Patient's Risk Screening for delivery: None MEDICAL/PSYCHOSOCIAL HISTORY: History of hemorrhage or bleeding concerns: No Thyroid Disease: No History of chronic hypertension: No History of pre-existing diabetes: No ABO/RH(D) Date Value Ref Range Status 12/21/2019 O POSITIVE Final BMI 21.05 kg/(m2) History of abnormal pap: No Prior treatment for cervical dysplasia: none. History of STDs: chlamydia Tobacco use: No Caffeine use: No Drug use: No Alcohol use: No Multivitamin with Folic acid: Yes Confucianism or heritage: No Would refuse blood transfusion if medically necessary: No Are you currently employed? No Do you have any history of depression, anxiety, PTSD, eating disorders or other mood problems: Yes, PPD. History of undiagnosed eating disorder. Decreased eating, history of throwing up because she thought she was fat. Withholds food then binge eats and throws up. Was seeing Odalis [facility] services. Was taking Effexor and this was helping. Was taking this for depression as well. History of feeling like she didn't want to live after a cousin stated she was a bad mom. Stopped taking Effexor one week ago and weaned by odalis because she told patient it was not recommended. Was taking for 3 months. SI was a year ago. Do you have any safety concerns or history of traumatic events that you would like to discuss with your provider: No How often does this describe you? I don't have enough money to pay my bills: Never Within the past 12 months, have you worried that your food would run out before you had money to buy more: Never In the past 12 months, has lack of reliable transportation kept you from going to medical appointments or work, or from keeping things needed for daily living: Never In the past 12 months, have you had any concerns about having a place to live, or about the condition or quality of your housing: Never Are there any cultural or spiritual needs we should be aware of: No Depression: denies, admits to symptoms of depression. 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 21/IRON FU/FOLIC ACID ( COMPLETE ORAL) Take by mouth. VENLAFAXINE ER 150 MG TABLET,EXTENDED RELEASE 24 HR Take 150 mg by mouth once daily. Drospirenone-Ethinyl Estradiol (STEPHANIE, 28,) 3-0.02 mg per tablet Take 1 tablet by mouth once angie (more content not included)... [facility] 08-18-2022 Note HNO ID: [id number] Author: Alia Wilson RN Service: ? Author Type: ? Type: Progress Notes Filed: 08/18/2022 4:16 PM Note Text: # 1 - Date: 02/19/17, Sex: Female, Weight: 6 lb 14 oz (3.118 kg), GA: 39w4d, Delivery: Vaginal, Spontaneous, Apgar1: 9, Apgar5: 9, Living: Living, Comments: rizzo pitocin induction GHTN, EBL 350cc # 2 - Date: 08/11/17, Sex: Unknown, Weight: None, GA: 10w3d, Delivery: SPONTANEOUS , Apgar1: None, Apgar5: None, Living: None, Comments: None # 3 - Date: 05/30/18, Sex: Male, Weight: 8 lb 2 oz (3.685 kg), GA: 40w0d, Delivery: Vaginal, Spontaneous, Apgar1: 8, Apgar5: 9, Living: Living, Comments: elective induction at 40wks, maternal anxiety, Pitocin induction, AROM, EBL 100cc, baby born with congenital heart defect-no surgery # 4 - Date: 12/21/19, Sex: Male, Weight: 7 lb 5 oz (3.317 kg), GA: 38w2d, Delivery: Vaginal, Spontaneous, Apgar1: 9, Apgar5: 9, Living: Living, Comments: hydrouretteronephrosis # 5 - Date: None, Sex: None, Weight: None, GA: None, Delivery: None, Apgar1: None, Apgar5: None, Living: None, Comments: None [facility] 08-18-2022 History of Present illness Narrative # 1 - Date: 02/19/17, Sex: Female, Weight: 6 lb 14 oz (3.118 kg), GA: 39w4d, Delivery: Vaginal, Spontaneous, Apgar1: 9, Apgar5: 9, Living: Living, Comments: rizzo pitocin induction GHTN, EBL 350cc # 2 - Date: 08/11/17, Sex: Unknown, Weight: None, GA: 10w3d, Delivery: SPONTANEOUS , Apgar1: None, Apgar5: None, Living: None, Comments: None # 3 - Date: 05/30/18, Sex: Male, Weight: 8 lb 2 oz (3.685 kg), GA: 40w0d, Delivery: Vaginal, Spontaneous, Apgar1: 8, Apgar5: 9, Living: Living, Comments: elective induction at 40wks, maternal anxiety, Pitocin induction, AROM, EBL 100cc, baby born with congenital heart defect-no surgery # 4 - Date: 12/21/19, Sex: Male, Weight: 7 lb 5 oz (3.317 kg), GA: 38w2d, Delivery: Vaginal, Spontaneous, Apgar1: 9, Apgar5: 9, Living: Living, Comments: hydrouretteronephrosis # 5 - Date: None, Sex: None, Weight: None, GA: None, Delivery: None, Apgar1: None, Apgar5: None, Living: None, Comments: None documented in this encounter [facility] 08-18-2022 Miscellaneous Notes DISTANCE HEALTH VISIT This Team Access Model visit is a phone encounter. It required patient-provider interaction for the medical decision making as documented below. Pt has a history of depression after delivery in 2019. Denies any depression after her other deliveries. She is currently taking Effexor prescribed by Odalis Staples NP in [facility]. Discussed increased risks of depression during and and importance of reporting the development or worsening of symptoms should they occur.patient states she had suicidal thoughts about 1 year ago but none since then. She states she started medication to treat the depression when she started feeling this way. Had not been on medication prior to that. History of gestational hypertension after the of her first Child. Patient's son born with ASD. No corrective surgery done. FOB's grandmother born with heart valve abnormality. Corrective surgery at age 7 and age 49. Patient's last son born with Congenital hydroureteronephrosis.Patient desires aneuploidy screening. Contact information for [employer] [facility] given to patient to check on insurance coverage.Considering genetic carrier screening testing.contact information for [facility] lab given to patient to check on insurance coverage.Alia Wilson RN documented in this encounter [facility] 08-11-2022 Miscellaneous Notes Please reach out to patient to see if she would like to reschedule appointment. We can discuss medications at that time. Brynn Gonzales APRN.CNM Patient no longer has an appointment today. Cancelled via ticcklehart. Please address her medication question. Thank you. LMP 07/11. Patient's antidepressant was changed to Effexor 150 MG once a day 2 weeks ago. Called to ask if this is safe to take in . I scheduled her for an appointment on Thursday to discuss her options as this was unplanned. DEED Chatterjee RN documented in this encounter [facility] documented as of this encounter (statuses as of 10/03/2022) [facility]10[facility] History of Past illness Narrative* Problem Noted Date Diagnosed Date Resolved Date Normal labor 12/21/2019 10/03/2022 renal anomaly, single gestation 11/29/2019 10/03/2022 Overview: 12/06/19-Met with pediatric nephrology-Note from Dr. Nichelle Ayala 24 yo mother 36 weeks preg who presents after a US showed left hydroureteronephrosis and possible ureterocele. Based on our interpretation, left hydroureteronephrosis is present but ureterocele is not clearly visualized. Pt was counseled on the possibility of obstruction vs reflux as the cause of the left hydroureteronephrosis. She prefers to deliver at [facility] to ensure that the necessary imaging can be performed. Plan: After , her baby will need: - Prophylatic abx (amoxicllin 20 mg/kg) daily - Circumcision - RBUS prior to discharge - will eventually need a VCUG Rocio Davis APRN.CNM Followed for pyelectasis. 11/29/2019 noted to have dilated ureter from collecting system down to bladder. Consistent with Ureterocele. Peds Urology referral made. Request for virtual visit. Therapy program informed to help track. Last Assessment & Plan: See overview updated today. 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 Therapy informed. Delivery location change likely not indicated. will need evaluation. Patient informed of management and referrals. Low-lying placenta 08/12/2019 3 Overview: 11/03/19- NO longer low lying per ultrasound. Brynn Gonzales APRN.CNM 09/08/19 - repeat US ordered - Evelyne Cantor MD Subchorionic hemorrhage in first trimester 10/28/2017 03/05/2018 Overview: 10/28/17-Small subchorionic hemorrhage. Patient denies any bleeding. Rocio Davis APRN.CNM with history of miscarriage 10/22/2017 03/05/2018 Overview: 10/22/2017Patient has a history of miscarriage and IPAS 08/11/2017. She did not have a menses since then. Had one spot of pink blood last night. Denies any other bleeding. Denies pain.Miscarriage precautions given. Patient to call/come in if bleeding recurrs, the development of pain or PRN problems. Discussed with Ele Lorenz. Serial Quantitative HCG's ordered. TKRN Short interval between pregn ancies affecting , antepartum 07/16/2017 10/03/2022 Overview: 05/12/2019Patient delivered her last child 05/30/2018. TKRN Chlamydia infection during 08/08/2016 04/20/2017 Overview: 08/08/16 - needs MAITE, rescreen at 3rd trimester - KJ February 11, 2017 retested today, neg in Sep. Claudine Bateman MD Bleeding in early 07/25/2016 10/20/2016 Overview: 07/25/2016Patient was seen for bleeding in 07/07. An ultrasound was done that showed an IUP @ 7w1d. She has noted bleeding 3 times since then, one that she considers heavier than spotting, more like a period. She denies any pain. Discussed with Dr De Souza and she ordered an ultrasound. TKRN Patient travels 07/25/2016 04/20/2017 Overview: 07/25/2016FOB traveled to [facility] the first week of February. Discussed with Dr De Souza and Zika lab work ordered.TKRN documented as of this encounter (statuses as of 10/04/2022) [facility] History of Past illness Narrative* Problem Noted Date Diagnosed Date Resolved Date Normal labor 12/21/2019 10/03/2022 renal anomaly, single gestation 11/29/2019 10/03/2022 Overview: 12/06/19-Met with pediatric nephrology-Note from Dr. Nichelle Ayala 24 yo mother 36 weeks preg who presents after a US showed left hydroureteronephrosis and possible ureterocele. Based on our interpretation, left hydroureteronephrosis is present but ureterocele is not clearly visualized. Pt was counseled on the possibility of obstruction vs reflux as the cause of the left hydroureteronephrosis. She prefers to deliver at [facility] to ensure that the necessary imaging can be performed. Plan: After , her baby will need: - Prophylatic abx (amoxicllin 20 mg/kg) daily - Circumcision - RBUS prior to discharge - will eventually need a VCUG Rocio Davis APRN.CNM Followed for pyelectasis. 11/29/2019 noted to have dilated ureter from collecting system down to bladder. Consistent with Ureterocele. Peds Urology referral made. Request for virtual visit. Therapy program informed to help track. Last Assessment & Plan: See overview updated today. 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 Therapy informed. Delivery location change likely not indicated. will need evaluation. Patient informed of management and referrals. Low-lying placenta 08/12/2019 3 Overview: 11/03/19- NO longer low lying per ultrasound. Brynn Gonzales APRN.CNM 09/08/19 - repeat US ordered - Evelyne Cantor MD Subchorionic hemorrhage in first trimester 10/28/2017 03/05/2018 Overview: 10/28/17-Small subchorionic hemorrhage. Patient denies any bleeding. Rocio Davis APRN.SANJUANA with history of miscarriage 10/22/2017 03/05/2018 Overview: 10/22/2017Patient has a history of miscarriage and IPAS 08/11/2017. She did not have a menses since then. Had one spot of pink blood last night. Denies any other bleeding. Denies pain.Miscarriage precautions given. Patient to call/come in if bleeding recurrs, the development of pain or PRN problems. Discussed with Ele Lorenz. Serial Quantitative HCG's ordered. TKRN Short interval between pregn ancies affecting , antepartum 07/16/2017 10/03/2022 Overview: 05/12/2019Patient delivered her last child 05/30/2018. TKRN Chlamydia infection during 08/08/2016 04/20/2017 Overview: 08/08/16 - needs MAITE, rescreen at 3rd trimester - KJ February 11, 2017 retested today, neg in Sep. Claudine Bateman MD Bleeding in early 07/25/2016 10/20/2016 Overview: 07/25/2016Patient was seen for bleeding in /15. An ultrasound was done that showed an IUP @ 7w1d. She has noted bleeding 3 times since then, one that she considers heavier than spotting, more like a period. She denies any pain. Discussed with Dr De Souza and she ordered an ultrasound. TKRN Patient travels 07/25/2016 04/20/2017 Overview: 07/25/2016FOB traveled to [facility] the first week of February. Discussed with Dr De Souza and Zika lab work ordered.TKRN documented as of this encounter (statuses as of 10/13/2022) [facility] History of Past illness Narrative* Problem Noted Date Diagnosed Date Resolved Date Normal labor 12/21/2019 10/03/2022 renal anomaly, single gestation 11/29/2019 10/03/2022 Overview: 12/06/19-Met with pediatric nephrology-Note from Dr. Nichelle Ayala 24 yo mother 36 weeks preg who presents after a US showed left hydroureteronephrosis and possible ureterocele. Based on our interpretation, left hydroureteronephrosis is present but ureterocele is not clearly visualized. Pt was counseled on the possibility of obstruction vs reflux as the cause of the left hydroureteronephrosis. She prefers to deliver at [facility] to ensure that the necessary imaging can be performed. Plan: After , her baby will need: - Prophylatic abx (amoxicllin 20 mg/kg) daily - Circumcision - RBUS prior to discharge - will eventually need a VCUG Rocio Davis APRN.CNM Followed for pyelectasis. 11/29/2019 noted to have dilated ureter from collecting system down to bladder. Consistent with Ureterocele. Peds Urology referral made. Request for virtual visit. Therapy program informed to help track. Last Assessment & Plan: See overview updated today. 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 Therapy informed. Delivery location change likely not indicated. will need evaluation. Patient informed of management and referrals. Low-lying placenta 08/12/2019 3 Overview: 11/03/19- NO longer low lying per ultrasound. Brynn Gonzales APRN.CNM 09/08/19 - repeat US ordered - Evelyne Cantor MD Subchorionic hemorrhage in first trimester 10/28/2017 03/05/2018 Overview: 10/28/17-Small subchorionic hemorrhage. Patient denies any bleeding. Rocio Davis APRN.CNM with history of miscarriage 10/22/2017 03/05/2018 Overview: 10/22/2017Patient has a history of miscarriage and IPAS 08/11/2017. She did not have a menses since then. Had one spot of pink blood last night. Denies any other bleeding. Denies pain.Miscarriage precautions given. Patient to call/come in if bleeding recurrs, the development of pain or PRN problems. Discussed with Ele Lorenz. Serial Quantitative HCG's ordered. TKRN Short interval between pregn ancies affecting , antepartum 07/16/2017 10/03/2022 Overview: 05/12/2019Patient delivered her last child 05/30/2018. TKRN Chlamydia infection during 08/08/2016 04/20/2017 Overview: 08/08/16 - needs MAITE, rescreen at 3rd trimester - KJ February 11, 2017 retested today, neg in Sep. Claudine Bateman MD Bleeding in early 07/25/2016 10/20/2016 Overview: 07/25/2016Patient was seen for bleeding in 07/07. An ultrasound was done that showed an IUP @ 7w1d. She has noted bleeding 3 times since then, one that she considers heavier than spotting, more like a period. She denies any pain. Discussed with Dr De Souza and she ordered an ultrasound. TKRN Patient travels 07/25/2016 04/20/2017 Overview: 07/25/2016FOB traveled to [facility] the first week of February. Discussed with Dr De Souza and Zika lab work ordered.TKRN documented as of this encounter (statuses as of 11/26/2022) [facility] History of Past illness Narrative* Problem Noted Date Diagnosed Date Resolved Date Normal labor 12/21/2019 10/03/2022 renal anomaly, single gestation 11/29/2019 10/03/2022 Overview: 12/06/19-Met with pediatric nephrology-Note from Dr. Nichelle Ayala 24 yo mother 36 weeks preg who presents after a US showed left hydroureteronephrosis and possible ureterocele. Based on our interpretation, left hydroureteronephrosis is present but ureterocele is not clearly visualized. Pt was counseled on the possibility of obstruction vs reflux as the cause of the left hydroureteronephrosis. She prefers to deliver at [facility] to ensure that the necessary imaging can be performed. Plan: After , her baby will need: - Prophylatic abx (amoxicllin 20 mg/kg) daily - Circumcision - RBUS prior to discharge - will eventually need a VCUG Rocio Davis APRN.CNM Followed for pyelectasis. 11/29/2019 noted to have dilated ureter from collecting system down to bladder. Consistent with Ureterocele. Peds Urology referral made. Request for virtual visit. Therapy program informed to help track. Last Assessment & Plan: See overview updated today. 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 Therapy informed. Delivery location change likely not indicated. will need evaluation. Patient informed of management and referrals. Low-lying placenta 08/12/2019 3 Overview: 11/03/19- NO longer low lying per ultrasound. Brynn Gonzales APRN.CNM 09/08/19 - repeat US ordered - Evelyne Cantor MD Subchorionic hemorrhage in first trimester 10/28/2017 03/05/2018 Overview: 10/28/17-Small subchorionic hemorrhage. Patient denies any bleeding. Rocio Davis, TOILET ATTENDANT.CNM with history of miscarriage 10/22/2017 03/05/2018 Overview: 10/22/2017Patient has a history of miscarriage and IPAS 08/11/2017. She did not have a menses since then. Had one spot of pink blood last night. Denies any other bleeding. Denies pain.Miscarriage precautions given. Patient to call/come in if bleeding recurrs, the development of pain or PRN problems. Discussed with Ele Lorenz. Serial Quantitative HCG's ordered. TKRN Short interval between pregn ancies affecting , antepartum 07/16/2017 10/03/2022 Overview: 05/12/2019Patient delivered her last child 05/30/2018. TKRN Chlamydia infection during 08/08/2016 04/20/2017 Overview: 08/08/16 - needs MAITE, rescreen at 3rd trimester - KJ February 11, 2017 retested today, neg in Sep. Claudine Bateman MD Bleeding in early 07/25/2016 10/20/2016 Overview: 07/25/2016Patient was seen for bleeding in 07/07. An ultrasound was done that showed an IUP @ 7w1d. She has noted bleeding 3 times since then, one that she considers heavier than spotting, more like a period. She denies any pain. Discussed with Dr De Souza and she ordered an ultrasound. TKRN Patient travels 07/25/2016 04/20/2017 Overview: 07/25/2016FOB traveled to [facility] the first week of February. Discussed with Dr De Souza and Zika lab work ordered.TKRN documented as of this encounter (statuses as of 12/23/2022) [facility] History of Past illness Narrative* Problem Noted Date Diagnosed Date Resolved Date Normal labor 12/21/2019 10/03/2022 renal anomaly, single gestation 11/29/2019 10/03/2022 Overview: 12/06/19-Met with pediatric nephrology-Note from Dr. Nichelle Ayala 24 yo mother 36 weeks preg who presents after a US showed left hydroureteronephrosis and possible ureterocele. Based on our interpretation, left hydroureteronephrosis is present but ureterocele is not clearly visualized. Pt was counseled on the possibility of obstruction vs reflux as the cause of the left hydroureteronephrosis. She prefers to deliver at [facility] to ensure that the necessary imaging can be performed. Plan: After , her baby will need: - Prophylatic abx (amoxicllin 20 mg/kg) daily - Circumcision - RBUS prior to discharge - will eventually need a VCUG Rocio Davis APRN.CNM Followed for pyelectasis. 11/29/2019 noted to have dilated ureter from collecting system down to bladder. Consistent with Ureterocele. [facility] Urology referral made. Request for virtual visit. Therapy program informed to help track. Last Assessment & Plan: See overview updated today. 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 Therapy informed. Delivery location change likely not indicated. will need evaluation. Patient informed of management and referrals. Low-lying placenta 08/12/2019 3 Overview: 11/03/19- NO longer low lying per ultrasound. Brynn Gonzales APRN.CNM 09/08/19 - repeat US ordered - Evelyne Cantor MD Subchorionic hemorrhage in first trimester 10/28/2017 03/05/2018 Overview: 10/28/17-Small subchorionic hemorrhage. Patient denies any bleeding. Rocio Davis APRN.CNM with history of miscarriage 10/22/2017 03/05/2018 Overview: 10/22/2017Patient has a history of miscarriage and IPAS 08/11/2017. She did not have a menses since then. Had one spot of pink blood last night. Denies any other bleeding. Denies pain.Miscarriage precautions given. Patient to call/come in if bleeding recurrs, the development of pain or PRN problems. Discussed with Ele Lorenz. Serial Quantitative HCG's ordered. TKRN Short interval between pregn ancies affecting , antepartum 07/16/2017 10/03/2022 Overview: 05/12/2019Patient delivered her last child 05/30/2018. TKRN Chlamydia infection during 08/08/2016 04/20/2017 Overview: 08/08/16 - needs MAITE, rescreen at 3rd trimester - KJ February 11, 2017 retested today, neg in Sep. Claudine Bateman MD Bleeding in early 07/25/2016 10/20/2016 Overview: 07/25/2016Patient was seen for bleeding in 07/07. An ultrasound was done that showed an IUP @ 7w1d. She has noted bleeding 3 times since then, one that she considers heavier than spotting, more like a period. She denies any pain. Discussed with Dr De Souza and she ordered an ultrasound. TKRN Patient travels 07/25/2016 04/20/2017 Overview: 07/25/2016FOB traveled to [facility] the first week of February. Discussed with Dr De Souza and Zika lab work ordered.TKRN documented as of this encounter (statuses as of 01/20/2023) [facility]10-28-2020 History of Past illness Narrative* Problem Noted Date Diagnosed Date Resolved Date Normal labor 12/21/2019 10/03/2022 renal anomaly, single gestation 11/29/2019 10/03/2022 Overview: 12/06/19-Met with pediatric nephrology-Note from Dr. Nichelle Ayala 24 yo mother 36 weeks preg who presents after a US showed left hydroureteronephrosis and possible ureterocele. Based on our interpretation, left hydroureteronephrosis is present but ureterocele is not clearly visualized. Pt was counseled on the possibility of obstruction vs reflux as the cause of the left hydroureteronephrosis. She prefers to deliver at [facility] to ensure that the necessary imaging can be performed. Plan: After , her baby will need: - Prophylatic abx (amoxicllin 20 mg/kg) daily - Circumcision - RBUS prior to discharge - will eventually need a VCUG Rocio Davis APRN.WANDERM Followed for pyelectasis. 11/29/2019 noted to have dilated ureter from collecting system down to bladder. Consistent with Ureterocele. Peds Urology referral made. Request for virtual visit. Therapy program informed to help track. Last Assessment & Plan: See overview updated today. 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 Therapy informed. Delivery location change likely not indicated. will need evaluation. Patient informed of management and referrals. Low-lying placenta 08/12/2019 3 Overview: 11/03/19- NO longer low lying per ultrasound. Brynn Gonzales APRN.CNM 09/08/19 - repeat US ordered - Evelyne Cantor MD Subchorionic hemorrhage in first trimester 10/28/2017 03/05/2018 Overview: 10/28/17-Small subchorionic hemorrhage. Patient denies any bleeding. Rocio Davis APRN.CNM with history of miscarriage 10/22/2017 03/05/2018 Overview: 10/22/2017Patient has a history of miscarriage and IPAS 08/11/2017. She did not have a menses since then. Had one spot of pink blood last night. Denies any other bleeding. Denies pain.Miscarriage precautions given. Patient to call/come in if bleeding recurrs, the development of pain or PRN problems. Discussed with Ele Lorenz. Serial Quantitative HCG's ordered. TKRN Short interval between pregn ancies affecting , antepartum 07/16/2017 10/03/2022 Overview: 05/12/2019Patient delivered her last child 05/30/2018. TKRN Chlamydia infection during 08/08/2016 04/20/2017 Overview: 08/08/16 - needs MAITE, rescreen at 3rd trimester - KJ February 11, 2017 retested today, neg in Sep. Claudine Bateman MD Bleeding in early 07/25/2016 10/20/2016 Overview: 07/25/2016Patient was seen for bleeding in /15. An ultrasound was done that showed an IUP @ 7w1d. She has noted bleeding 3 times since then, one that she considers heavier than spotting, more like a period. She denies any pain. Discussed with Dr De Souza and she ordered an ultrasound. TKRN Patient travels 07/25/2016 04/20/2017 Overview: 07/25/2016FOB traveled to [facility] the first week of February. Discussed with Dr De Souza and Zika lab work ordered.TKRN documented as of this encounter (statuses as of 02/06/2023) [facility] History of Past illness Narrative* Problem Noted Date Diagnosed Date Resolved Date Normal labor 12/21/2019 10/03/2022 renal anomaly, single gestation 11/29/2019 10/03/2022 Overview: 12/06/19-Met with pediatric nephrology-Note from Dr. Nichelle Ayala 24 yo mother 36 weeks preg who presents after a US showed left hydroureteronephrosis and possible ureterocele. Based on our interpretation, left hydroureteronephrosis is present but ureterocele is not clearly visualized. Pt was counseled on the possibility of obstruction vs reflux as the cause of the left hydroureteronephrosis. She prefers to deliver at [facility] to ensure that the necessary imaging can be performed. Plan: After , her baby will need: - Prophylatic abx (amoxicllin 20 mg/kg) daily - Circumcision - RBUS prior to discharge - will eventually need a VCUG Rocio Davis APRN.CNM Followed for pyelectasis. 11/29/2019 noted to have dilated ureter from collecting system down to bladder. Consistent with Ureterocele. Peds Urology referral made. Request for virtual visit. Therapy program informed to help track. Last Assessment & Plan: See overview updated today. 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 Therapy informed. Delivery location change likely not indicated. will need evaluation. Patient informed of management and referrals. Low-lying placenta 08/12/2019 Overview: 11/03/19- NO longer low lying per ultrasound. Brynn Gonzales APRN.CNM 09/08/19 - repeat US ordered - Evelyne Cantor MD Subchorionic hemorrhage in first trimester 10/28/2017 03/05/2018 Overview: 10/28/17-Small subchorionic hemorrhage. Patient denies any bleeding. Rocio Davis APRN.CNM with history of miscarriage 10/22/2017 03/05/2018 Overview: 10/22/2017Patient has a history of miscarriage and IPAS 08/11/2017. She did not have a menses since then. Had one spot of pink blood last night. Denies any other bleeding. Denies pain.Miscarriage precautions given. Patient to call/come in if bleeding recurrs, the development of pain or PRN problems. Discussed with Ele Lorenz. Serial Quantitative HCG's ordered. TKRN Short interval between pregn ancies affecting , antepartum 07/16/2017 10/03/2022 Overview: 05/12/2019Patient delivered her last child 05/30/2018. TKRN Chlamydia infection during 08/08/2016 04/20/2017 Overview: 08/08/16 - needs MAITE, rescreen at 3rd trimester - KJ February 11, 2017 retested today, neg in Sep. Claudine Bateman MD Bleeding in early 07/25/2016 10/20/2016 Overview: 07/25/2016Patient was seen for bleeding in 07/07. An ultrasound was done that showed an IUP @ 7w1d. She has noted bleeding 3 times since then, one that she considers heavier than spotting, more like a period. She denies any pain. Discussed with Dr De Souza and she ordered an ultrasound. TKRN Patient travels 07/25/2016 04/20/2017 Overview: 07/25/2016FOB traveled to [facility] the first week of February. Discussed with Dr De Souza and Zika lab work ordered.TKRN documented as of this encounter (statuses as of 02/09/2023) [facility] History of Past illness Narrative* Problem Noted Date Diagnosed Date Resolved Date Normal labor 12/21/2019 10/03/2022 renal anomaly, single gestation 11/29/2019 10/03/2022 Overview: 12/06/19-Met with pediatric nephrology-Note from Dr. Nichelle Ayala 24 yo mother 36 weeks preg who presents after a US showed left hydroureteronephrosis and possible ureterocele. Based on our interpretation, left hydroureteronephrosis is present but ureterocele is not clearly visualized. Pt was counseled on the possibility of obstruction vs reflux as the cause of the left hydroureteronephrosis. She prefers to deliver at [facility] to ensure that the necessary imaging can be performed. Plan: After , her baby will need: - Prophylatic abx (amoxicllin 20 mg/kg) daily - Circumcision - RBUS prior to discharge - will eventually need a VCUG Rocio Davis APRN.CNM Followed for pyelectasis. 11/29/2019 noted to have dilated ureter from collecting system down to bladder. Consistent with Ureterocele. Peds Urology referral made. Request for virtual visit. Therapy program informed to help track. Last Assessment & Plan: See overview updated today. 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 Therapy informed. Delivery location change likely not indicated. will need evaluation. Patient informed of management and referrals. Low-lying placenta 08/12/2019 3 Overview: 11/03/19- NO longer low lying per ultrasound. Brynn Gonzales APRN.CNM 09/08/19 - repeat US ordered - Evelyne Cantor MD Subchorionic hemorrhage in first trimester 10/28/2017 03/05/2018 Overview: 10/28/17-Small subchorionic hemorrhage. Patient denies any bleeding. Rocio Davis APRN.CNM with history of miscarriage 10/22/2017 03/05/2018 Overview: 10/22/2017Patient has a history of miscarriage and IPAS 08/11/2017. She did not have a menses since then. Had one spot of pink blood last night. Denies any other bleeding. Denies pain.Miscarriage precautions given. Patient to call/come in if bleeding recurrs, the development of pain or PRN problems. Discussed with Ele Lorenz. Serial Quantitative HCG's ordered. TKRN Short interval between pregn ancies affecting , antepartum 07/16/2017 10/03/2022 Overview: 05/12/2019Patient delivered her last child 05/30/2018. TKRN Chlamydia infection during 08/08/2016 04/20/2017 Overview: 08/08/16 - needs MAITE, rescreen at 3rd trimester - KJ February 11, 2017 retested today, neg in Sep. Claudine Bateman MD Bleeding in early 07/25/2016 10/20/2016 Overview: 07/25/2016Patient was seen for bleeding in 07/07. An ultrasound was done that showed an IUP @ 7w1d. She has noted bleeding 3 times since then, one that she considers heavier than spotting, more like a period. She denies any pain. Discussed with Dr De Souza and she ordered an ultrasound. TKRN Patient travels 07/25/2016 04/20/2017 Overview: 07/25/2016FOB traveled to [facility] the first week of February. Discussed with Dr De Souza and Zika lab work ordered.TKRN documented as of this encounter (statuses as of 02/12/2023) [facility] History of Past illness Narrative* Problem Noted Date Resolved Date Subchorionic hemorrhage in first trimester 10/2803/05/2018 Overview: 10/28/17-Small subchorionic hemorrhage. Patient denies any bleeding. Rocio Davis APRN.CNM with history of miscarriage 10/22/2017 03/05/2018 Overview: 10/22/2017Patient has a history of miscarriage and IPAS 08/11/2017. She did not have a menses since then. Had one spot of pink blood last night. Denies any other bleeding. Denies pain.Miscarriage precautions given. Patient to call/come in if bleeding recurrs, the development of pain or PRN problems. Discussed with Ele Lorenz. Serial Quantitative HCG's ordered. TKRN Chlamydia infection during 08/08/2016 04/20/2017 Overview: 08/08/16 - needs MAITE, rescreen at 3rd trimester - KJ February 11, 2017 retested today, neg in Sep. Claudine Bateman MD Bleeding in early 07/25/201609/24 Overview: 07/25/2016Patient was seen for bleeding in 07/07. An ultrasound was done that showed an IUP @ 7w1d. She has noted bleeding 3 times since then, one that she considers heavier than spotting, more like a period. She denies any pain. Discussed with Dr De Souza and she ordered an ultrasound. TKRN Patient travels 07/25/2016 04/20/2017 Overview: 07/25/2016FOB traveled to [facility] the first week of February. Discussed with Dr De Souza and Zika lab work ordered.TKRN documented as of this encounter (statuses as of 08/12/2022) [facility] History of Past illness Narrative* Problem Noted Date Resolved Date Subchorionic hemorrhage in first trimester 10/2803/05/2018 Overview: 10/28/17-Small subchorionic hemorrhage. Patient denies any bleeding. Rocio Davis APRN.CNM with history of miscarriage 10/22/2017 03/05/2018 Overview: 10/22/2017Patient has a history of miscarriage and IPAS 08/11/2017. She did not have a menses since then. Had one spot of pink blood last night. Denies any other bleeding. Denies pain.Miscarriage precautions given. Patient to call/come in if bleeding recurrs, the development of pain or PRN problems. Discussed with Ele Lorenz. Serial Quantitative HCG's ordered. TKRN Chlamydia infection during 08/08/2016 04/20/2017 Overview: 08/08/16 - needs MAITE, rescreen at 3rd trimester - KJ February 11, 2017 retested today, neg in Sep. Claudine Bateman MD Bleeding in early 07/25/201609/24 Overview: 07/25/2016Patient was seen for bleeding in 07/07. An ultrasound was done that showed an IUP @ 7w1d. She has noted bleeding 3 times since then, one that she considers heavier than spotting, more like a period. She denies any pain. Discussed with Dr De Souza and she ordered an ultrasound. TKRN Patient travels 07/25/2016 04/20/2017 Overview: 07/25/2016FOB traveled to [facility] the first week of February. Discussed with Dr De Souza and Zika lab work ordered.TKRN documented as of this encounter (statuses as of 08/19/2022) [facility] History of Past illness Narrative* Problem Noted Date Diagnosed Date Resolved Date Subchorionic hemorrhage in first trimester 10/28/2017 03/05/2018 Overview: 10/28/17-Small subchorionic hemorrhage. Patient denies any bleeding. Rocio Davis APRN.CNM with history of miscarriage 10/22/2017 03/05/2018 Overview: 10/22/2017Patient has a history of miscarriage and IPAS 08/11/2017. She did not have a menses since then. Had one spot of pink blood last night. Denies any other bleeding. Denies pain.Miscarriage precautions given. Patient to call/come in if bleeding recurrs, the development of pain or PRN problems. Discussed with Ele Lorenz. Serial Quantitative HCG's ordered. TKRN Chlamydia infection during 08/08/2016 04/20/2017 Overview: 08/08/16 - needs MAITE, rescreen at 3rd trimester - KJ February 11, 2017 retested today, neg in Sep. Claudine Bateman MD Bleeding in early 07/25/2016 10/20/2016 Overview: 07/25/2016Patient was seen for bleeding in 07/07. An ultrasound was done that showed an IUP @ 7w1d. She has noted bleeding 3 times since then, one that she considers heavier than spotting, more like a period. She denies any pain. Discussed with Dr De Souza and she ordered an ultrasound. TKRN Patient travels 07/25/2016 04/20/2017 Overview: 07/25/2016FOB traveled to [facility] the first week of February. Discussed with Dr De Souza and Zika lab work ordered.TKRN documented as of this encounter (statuses as of 09/11/2022) [facility] History of anomaly in prior , currently - Primary with other poor obstetric history History of depression History of gestational hypertension Family history of defects Family history of congenital anomalies Patient request for diagnostic testing Other specified examination [facility] Encounter for supervision of normal in multigravida in first trimester- Primary [facility] Diagnosis Encounter for supervision of normal in multigravida in first trimester- Primary 12 weeks gestation of state, incidental [facility] Diagnosis Nuchal translucency of fetus on ultrasound- Primary Abnormal findings on screening 12 weeks gestation of state, incidental [facility] Diagnosis 20 weeks gestation of - Primary state, incidental Supervision of high risk in second trimester Unspecified high-risk [facility] Diagnosis 24 weeks gestation of - Primary state, incidental Supervision of high risk in second trimester Unspecified high-risk [facility] Diagnosis Supervision of high risk in third trimester- Primary Unspecified high-risk 28 weeks gestation of state, incidental [facility] Diagnosis 30 weeks gestation of - Primary state, incidental Supervision of high risk in third trimester Unspecified high-risk documented in this encounter [facility] Summary Purpose Family History No Family History Records FoundNo Family History Records FoundNo Family History Records FoundNo Family History Records FoundNo Family History Records Found Advance Directives No Advanced Directives Records FoundNo Advanced Directives Records FoundNo Advanced Directives Records FoundNo Advanced Directives Records FoundNo Advanced Directives Records Found Procedure Findings Note HNO ID: [id number] Author: Glenn Villafuerte Service: ? Author Type: Nurse Marketing Research Intern Type: Anesthesia Procedure Notes Filed: 12/21/2019 11:20 AM Note Text: ANESTHESIOLOGY PROCEDURE NOTE Epidural Block General Information Procedure Start Time/Medication Administration: 12/21/2019 10:46 AM Patient location during procedure: [facility] room Timeout Performed Pre-procedure: timeout performed Consent Obtained: Yes Patient identity confirmed: arm band, care retail team leader and patient Reason for block: labor epidural Staffing Anesthesiologist: Kyle Slaughter SRNA: Zoila (Shamar) Pankaj Performed by: SHAMAR Preparation Sterility Preparation: hand hygiene performed prior to procedure, surgical cap used, mask used, sterile drape used during line insertion, skin prep agent completely dried prior to procedure Site Prep: Chloraprep Procedure Details Patient position: sitting Ultrasound Guided: No Patient monitoring: Pulse OX and NIBP Approach: midline Injection technique: MARILIN saline Region: lumbar Estimated Interspac (more content not included)... Health Concerns Problem Noted Date Diagnosed Date [facility] Education - [facility] 09/03/2022 Education - [place] 09/03/2022 Problem Noted Date Diagnosed Date [facility] Education - [facility] 09/03/2022 Education - [place] 09/03/2022 Problem Noted Date Diagnosed Date [facility] Education - [facility] 09/03/2022 Education - [place] 09/03/2022 Additional Source Comments INFORMATION SOURCE (unrecogn ized section and content) DATE CREATED AUTHOR AUTHOR'S ORGANIZ ATION 10/15/2017 [facility] DATE CREATED AUTHOR AUTHOR'S ORGANIZ ATION 12/26/2019 [facility] DATE CREATED AUTHOR AUTHOR'S ORGANIZ ATION 09/20/2020 [facility] DATE CREATED AUTHOR AUTHOR'S ORGANIZ ATION 02/19/2023 [facility] Source Comments (unrecognize d section and content) In the event this informatio n is protected by the Federal Confidentiality of Alcohol and Drug Abuse Patient Records regulations: The Federal rules restrict any use of the information to criminally investigate or prosecute any alcohol or drug abuse patient.[facility] the event this information is protected by the Federal Confidentiality of Alcohol and Drug Abuse Patient Records regulations: The Federal rules restrict any use of the information to criminally investigate or prosecute any alcohol or drug abuse patient.[facility] Center[facility] the event this information is protected by the Federal Confidentiality of Alcohol and Drug Abuse Patient Records regulations: The Federal rules restrict any use of the information to criminally investigate or prosecute any alcohol or drug abuse patient.[facility] Center[facility] the event this information is protected by the Federal Confidentiality of Alcohol and Drug Abuse Patient Records regulations: The Federal rules restrict any use of the information to criminally investigate or prosecute any alcohol or drug abuse patient.[facility] Center[facility] the event this information is protected by the Federal Confidentiality of Alcohol and Drug Abuse Patient Records regulations: The Federal rules restrict any use of the information to criminally investigate or prosecute any alcohol or drug abuse patient.[facility] CenterIn the event this information is protected by the Federal Confidentiality of Alcohol and Drug Abuse Patient Records regulations: The Federal rules restrict any use of the information to criminally investigate or prosecute any alcohol or drug abuse patient.[facility] CenterIn the event this information is protected by the Federal Confidentiality of Alcohol and Drug Abuse Patient Records regulations: The Federal rules restrict any use of the information to criminally investigate or prosecute any alcohol or drug abuse patient.[facility] CenterIn the event this information is protected by the Federal Confidentiality of Alcohol and Drug Abuse Patient Records regulations: The Federal rules restrict any use of the information to criminally investigate or prosecute any alcohol or drug abuse patient.[facility] CenterIn the event this information is protected by the Federal Confidentiality of Alcohol and Drug Abuse Patient Records regulations: The Federal rules restrict any use of the information to criminally investigate or prosecute any alcohol or drug abuse patient.[facility] CenterIn the event this information is protected by the Federal Confidentiality of Alcohol and Drug Abuse Patient Records regulations: The Federal rules restrict any use of the information to criminally investigate or prosecute any alcohol or drug abuse patient.[facility] CenterIn the event this information is protected by the Federal Confidentiality of Alcohol and Drug Abuse Patient Records regulations: The Federal rules restrict any use of the information to criminally investigate or prosecute any alcohol or drug abuse patient.[facility] CenterIn the event this information is protected by the Federal Confidentiality of Alcohol and Drug Abuse Patient Records regulations: The Federal rules restrict any use of the information to criminally investigate or prosecute any alcohol or drug abuse patient.[facility] [facility] Reason for Visit (unrecogniz ed section and content) Reason Comments Care Reason Comments Orders Reason Onset Date Comments Care 10/03/2022 Reason Comments US Specialty Diagnoses / Procedures Referred By Contac t Referred To Contact [facility] Diagnoses care, antepartum Procedures NUCHAL TRANSLUCENCY WHI US NUCHAL TRANSLUCENCY 1ST GESTATION Rocio Davis APRN.CN [address] [place] [address] [facility] [address] [place] [address] Referral ID Status Reason Start Date Expiration Date V isits Requested Visits Authorized [id number] Closed Auto-Generate d Referral 09/03/2022 09/03/2023 1 1 Reason Comments Results [id number] Reason Onset Date Comments Care 11/25/2022 Reason Onset Date Comments Care 12/23/2022 Reason Onset Date Comments Care 01/20/2023 Reason Onset Date Comments Care 02/05/2023 FOR RECORDS PERTAINING TO PATIENTS WHO ARE OR HAVE BEEN ENROLLED IN A CHEMICAL DEPENDENCY/SUBSTANCEABUSE PROGRAM, SOME INFORMATION MAY BE OMITTED. This clinical summary was aggregated from multiple sources. Caution should be exercised in using it in the provision of clinical care. This summary normalizes information from multiple sources, and as a consequence, information in this document may materially change the coding, format and clinical context of patient data. In addition, data may be omitted in some cases. CLINICAL DECISIONS SHOULD BE BASED ON THE PRIMARY CLINICAL RECORDS. [employer] [facility]. provides no warranty or guarantee of the accuracy or completeness of information in this document.
[2023-03-03 12:27] LABS: ALB/GLOB Ratio 0.8 RATIO (0.9-2.4); AST(SGOT) 20 U/L (15-37); Alanine Aminotransfer ALT/SGPT 12 U/L (13-56); Albumin, Serum 2.9 g/dL (3.2-5.0); Alkaline Phosphatase 102 U/L (45-117); Anion Gap 6 (5-15); BUN 6 mg/dL (7-18); BUN/Creat Ratio 9.4 RATIO (10-20); Calcium,Total 8.4 mg/dL (8.5-10.1); Chloride 106 mmol/L (98-107); Creatinine, Serum 0.64 mg/dL (0.55-1.02); EST Glomerular Filtration Rate 117 mL/min (>60); Est Glom Filt Rate - Afr Amer 142 mL/min (>60); Globulin 3.7 g/dL (2.2-4.2); Glucose 140 mg/dL (74-106); Glucose Challenge Gest 1H 50g 140 mg/dL (70-140); Potassium 3.7 mmol/L (3.5-5.1); Protein, Total 6.6 g/dL (6.4-8.2); Sodium Level 138 mmol/L (136-145)
[2023-03-03 14:10] LABS: Syphilis Antibodies Non-reactive; Vitamin B12 231 pg/mL (211-911); Vitamin D,25 Hydroxy 40.3 ng/mL
[2023-03-07 13:46] LABS: Vitamin B1, Thiamine 135.6 nmol/L (66.5-200.0)
== END | disposition home or self-care (01) ==
LOC: LAB 09:34
PROVIDERS: Referring Provider Advanced Practice Midwife; Visit Provider Advanced Practice Midwife
DX: O99.343 Other mental disorders complicating pregnancy, third trimester (principal); F50.9 Eating disorder, unspecified; Z3A.34 34 weeks gestation of pregnancy
CPT/HCPCS: 36415; 80053; 82306; 82607; 82746; 82950; 84425; 85027; 86780

== ENCOUNTER → 2023-03-11 | Outpatient (CLI) | payer BC, SELFPAY ==
[2023-03-11 08:51] LABS: Glucose GTT-Gestation. Fasting 82 mg/dL (<105)
[2023-03-11 10:15] LABS: Glucose GTT-Gestational 1 Hr 132 mg/dL (<190)
[2023-03-11 11:00] LABS: Glucose GTT-Gestational 2 Hr 124 mg/dL (<165)
[2023-03-11 11:55] LABS: Glucose GTT-Gestational 3 Hr 99 L (<145)
== END | disposition home or self-care (01) ==
LOC: LAB 08:03
PROVIDERS: Visit Provider Advanced Practice Midwife
DX: R73.09 Other abnormal glucose (principal)
CPT/HCPCS: 36415; 82951; 82952

== ENCOUNTER 2023-04-06 07:00 | Inpatient (IN) | payer BC, SELFPAY ==
[2023-04-06] VITALS (33 sets, daily range): BP systolic 97–136; BP diastolic 52–84; PULSE 76–102; RESP 14; TEMP 36.7–37.4; O2SAT 84–100; BMI 23.3
--- OUTSIDE RECORDS SUMMARY | 2023-04-06 07:10 | XMS RPT_ITS | CCD ---
Author Name Unknown Address [email or web address] [place] [address] Organization [facility] Care Team Providers Care Recreation Teacher Name Role Phone Claudine Bateman Unavailable Unavailable Claudine Bateman Unavailable Unavailable Clauidne Bateman Unavailable Unavailable Unavailable Primary Care Provider ROCIO Capone Attending Unavailable SAKSHI, EVELYNE Attending Unavailable DAVIS, ROCIO Referring Unavailable DAVIS, ROCIO Referring Unavailable DAVIS, ROCIO Referring Unavailable PLOTTS, BRYNN Attending Unavailable PLOTTS, BRYNN Referring Unavailable PLOTTS, BRYNN Attending Unavailable OMARI, ROCIO Attending Unavailable OMARI, ROCIO Attending Unavailable SAKSHI, EVELYNE Attending Unavailable DAVIS, ROCIO Referring Unavailable PLOTTS, BRYNN Attending Unavailable DAVIS, ROCIO Attending Unavailable SAKSHI, EVELYNE Attending Unavailable DAVIS, ROCIO Referring Unavailable PLOTTS, BRYNN Attending Unavailable DAVIS, ROCIO Referring Unavailable HAMARIA ELENA MATTSON Attending Unavailable Medications Completed/Discontinued Medications Medication Drug Class(es) Dates Sig (Normalized) Sig (Original) aspirin 81 mg delayed release oral tablet (10 sources) Platelet Aggregation Inhibitor, Nonsteroidal Anti-inflammatory Drug Start: 10-03-2022 take 1 tablet by mouth once daily aspirin, enteric coated (ASPIRIN, ENTERIC COATED) 81 mg EC tablet Take 1 tablet by mouth once daily. 0 10/03/2022 Active Problems Active Problems Problem Classification Problem Date Documented Da te Episodic/Chronic Bacterial infection; unspecified site (2 sources) Bacteria present; Translations: [Streptococcus, group B, as the cause of diseases classified elsewhere] Onset: 03-19-2023 04-01-2023 Episodic Diabetes mellitus without complication (1 source) Increased glucose level; Translations: [Other abnormal glucose] Onset: 02-13-2023 03-25-2023 Episodic Miscellaneous mental health disorders (12 sources) Eating disorder; Translations: [Eating disorder, unspecified] Onset: 09-10-2022 09-10-2022 Chronic Other complications of (1 source) Supervision of with other poor reproductive or obstetric history, unspecified trimester; Translations: [ with other poor obstetric history] Episodic Other complications of (16 sources) High risk ; Translations: [Supervision of other high risk pregnancies, first trimester] Onset: 09-10-2022 09-10-2022 Episodic Other complications of (1 source) Supervision [...] 02-05-2023 Episodic Residual codes; unclassified (1 source) Gestation period, 38 weeks; Translations: [38 weeks gestation of ] 04-01-2023 Episodic Residual codes; unclassified (1 source) 34 weeks gestation of ; Translations: [34 weeks gestation of ] Onset: 03-03-2023 Episodic Residual codes; unclassified (1 source) 24 [...] unspecified trimester] Onset: 07-16-2017 12-21-2019 Episodic Other and delivery including normal (7 sources) Normal labor; Translations: [Encounter for full-term uncomplicated delivery] Onset: 12-21-2019 12-22-2019 Episodic Residual codes; unclassified (1 source) FH: Congenital heart disease; Translations: [Family history of other congenital malformations, deformations and chromosomal abnormalities] Onset: 07-25-2016 12-21-2019 Episodic Residual codes; unclassified (14 sources) History of gestational hypertension; Translations: [Personal history of other complications of , childbirth and the puerperium] Onset: 07-16-2017 12-21-2019 Episodic Residual codes; unclassified (14 sources) H/O: depression; Translations: [Personal history of other complications of , childbirth and the puerperium] Onset: 05-12-2019 12-21-2019 Episodic Residual codes; unclassified (13 sources) FH: Congenital anomaly; Translations: [Family history [...] Vital Sign Value Performing Clinician Patrick garcia 04-01-2023 09:04-0500 Body weight 64.41 kg Brynn Canchola APRN.CNM Work Phone: [facility] 04-01-2023 09:04-0500 Diastolic blood pressure 62 mm[Hg] Brynn Canchola APRN.CNM Work Phone: [facility] 04-01-2023 09:04-0500 Systolic blood pressure 108 mm[Hg] Brynn Canchola TORCH HEATER.CNM Work Phone: [facility] 02-05-2023 11:24-0500 Body weight 64.23 kg Brynn Canchola TORCH HEATER.CNM Work Phone: [facility] 02-05-2023 11:24-0500 Diastolic blood pressure 72 mm[Hg] Brynn Plotts TORCH HEATER.CNM Work Phone: [facility] 02-05-2023 11:24-0500 Systolic blood pressure 106 mm[Hg] Brynn Canchola TORCH HEATER.CNM Work Phone: [facility] 01-20-2023 10:38-0500 Body weight 64.05 kg Evelyne Russell MD Work Phone: [facility] 01-20-2023 10:38-0500 Diastolic blood pressure 62 mm[Hg] Evelyne Russell MD Work Phone: [facility] 01-20-2023 10:38-0500 Systolic blood pressure 100 mm[Hg] Evelyne Russell MD Work Phone: [facility] 12-23-2022 10:16-0400 Body weight 63.05 kg Rocio Davis TORCH HEATER.CNM Work Phone: [facility] 12-23-2022 10:16-0400 Diastolic blood pressure 66 mm[Hg] Rocio Davis TORCH HEATER.CNM Work Phone: [facility] 12-23-2022 10:16-0400 Systolic blood pressure 108 mm[Hg] Rocio Davis TORCH HEATER.CNM Work Phone: [facility] 11-25-2022 10:56-0400 Body weight 61.15 kg Evelyne Russell MD Work Phone: [facility] 11-25-2022 10:56-0400 Diastolic blood pressure 60 mm[Hg] Evelyne Russell MD Work Phone: [facility] 11-25-2022 10:56-0400 Systolic blood pressure 98 mm[Hg] Evelyne Russell MD Work Phone: [facility] 10-03-2022 10:36-0400 Body weight 58.06 kg Evelyne Russell MD Work Phone: [facility] 10-03-2022 10:36-0400 Diastolic blood pressure 64 mm[Hg] Evelyne Russell MD Work Phone: [facility] 10-03-2022 10:36-0400 Systolic blood pressure 106 mm[Hg] Evelyne Russell MD Work Phone: [facility] Encounters Encounter Date Encounter Type Care Provider Facility Start: 04-01-2023 End: 04-01-2023 ambulatory BRYNN CHRISTIAN Facility:[facility] Start: 04-01-2023 End: 04-01-2023 Patient encounter procedure Brynn Canchola TORCH HEATER.CNM Work Phone: OB/Gynecology Procedures Date Procedure Procedure Detail Performing Clinician Start: 04-01-2023 URINE OB DIP B/O Renée Canchola TORCH HEATER.CNM Work Phone: Start: 02-05-2023 URINE OB DIP B/O Courtn gilmar Canchola TORCH HEATER.CNM Work Phone: Start: 01-20-2023 URINE OB DIP B/O Evelyen Russell MD Work Phone: Start: 11-25-2022 URINE OB DIP B/O Evelyne Russell MD Work Phone: Start: 10-03-2022 Antibody screen ROCIO OMARI Plan of Treatment Date Care Activity Detail Author Start: 04-16-2028 Urine microalbumin profile [facility] Start: 09-03-2025 PAP TESTING PAP TESTING [facility] Start: 09-03-2025 Screening for malignant neoplasm of cervix Pap Testing [facility] Start: 02-23-2023 Depression Assessment Depression Assessment [facility] Start: 02-16-2023 RSV Vaccine (1 - Risk 1-dose series) RSV Vaccine (1 - Risk 1-dose series) [facility] Start: 12-23-2022 End: 03-24-2023 CBC W Auto Differential panel - Blood CBC + DIFF Lab Routine 24 weeks gestation of Supervision of high risk in second trimester Expected: 12/23/2022, Expires: 03/24/2023 [facility] Work Phone: Immunizations Immunization Date Immunization Notes Care Provider Ulysses johnson 11-17-2019 influenza, injectabl e, quadrivalent, contains preservative Brynn Plotts TORCH HEATER.CNM Work Phone: [facility] 11-17-2019 influenza virus vaccine, unspecified formulation Evelyne Russell MD Work Phone: [facility] 04-16-2018 tetanus toxoid, redu gamaliel diphtheria toxoid, and acellular pertussis vaccine, adsorbed Brynn Plotts TORCH HEATER.CNM Work Phone: [facility] Work Phone: 12-18-2017 influenza, injectabl e, quadrivalent, contains preservative Brynn Plotts TORCH HEATER.CNM Work Phone: [facility] 02-20-2017 measles, mumps and rubella virus vaccine Brynn Plotts TORCH HEATER.CNM Work Phone: [facility] Work Phone: 11-28-2016 influenza, injectabl e, quadrivalent, contains preservative Brynn Plotts TORCH HEATER.CNM Work Phone: [facility] 11-28-2016 tetanus toxoid, redu gamaliel diphtheria toxoid, and acellular pertussis vaccine, adsorbed Brynn Plotts TORCH HEATER.CNM Work Phone: [facility] Payers Date Payer Category Payer Unknown [id number] 2017 Unknown Unknown [id number] Social History Date Type Detail Facility Start: 11-08-2021 Tobacco smoking stat us ARIS Never smoked tobacco [facility] Start: 11-08-2021 Tobacco use and exposure Smokeless tobacco non-user [facility] Start: 11-08-2021 End: 03-25-2023 Alcohol intake Current non-drinker of alcohol (finding) [facility] Start: 05-12-2019 History SDOH Financial 5 [facility] Start: 05-12-2019 History SDOH Food Worry 1 [facility] Start: 05-12-2019 History SDOH Transpo rt Med 2 [facility] Start: 05-12-2019 Education 8 [facility] Start: 1995 Sex Assigned At Not on file C [facility] Start: 07-21-2022 [facility] Start: 03-23-2022 End: 09-03-2022 History of Social function [facility] Work Phone: Start: 03-23-2022 End: 09-03-2022 Tobacco use panel [facility] Work Phone: How hard is it for y ou to pay for the very basics like food, housing, medical care, and heating Not hard at all [facility] Work Phone: (I/We) worried wheth er (my/our) food would run out before (I/we) got money to buy more. Never true [facility] Work Phone: The thought of myles brower myself has occurred to me Never [facility] Start: 05-26-2019 Sexual orientation Heterosexual (maynor iglesias) [facility] Work Phone: Goals Date Patient Goal Desired Activity /State Personal health goal Clinical Notes 10-28-2017 to 04-01-2023 Quick Notes - Brynn Canchola APRN.CNM - 04/01/2023 9:16 AM ESTPatient InstructionsTelephone Encounter - Cris Zarate RN - 02/11/2023 8:34 AM ESTPatient InstructionsPatient Instructions Note Date & Type Note Facility 04-01-2023 Miscellaneous Notes Alberto Howard is a 27 year old female who presents at 38w2d for a routine visit. Good movement. Denies headache, visual changes, chest pain, shortness of breath, vaginal bleeding, leakage of fluid, or dysuria. Feeling well, no complaints. Occasional contractions but stated they are irregular. Requesting elective induction of labor at 39 weeks gestation. Size equal to dates. 12 lbs TWG. ASSESSMENT/PLAN: 1. 38 weeks gestation of - ICD9: V22.2, ICD10: Z3A.38 (primary diagnosis) 2. Supervision of high risk in third trimester - ICD9: V23.9, ICD10: O09.93 3. Group beta Strep positive - ICD9: 041.02, ICD10: B95.1 4. Eating disorder, unspecified type - ICD9: 307.50, ICD10: F50.9 - Induction scheduled for 04/06/23 at 7 am- rizzo bulb and pitocin. - GBS positive and will need PCN during labor - Consents signed - Labor precautions reviewed and when to notify office - RTO 2 weeks PP Brynn Canchola APRN.CNM documented in this encounter [facility] 04-01-2023 Instructions Milagros Balderas Ma 04/01/2023 9:02 AM EST SEQUENTIAL SCREENINGS The [facility] offers sequential screenings for women who are [...] It will require an appointment with our mine technician. This is not an ultrasound performed [...] the above symptoms, contact our office at [phone] and ask to speak with a nurse. After hours, you can call doctors registry at [phone] OR call [facility] at [phone] and ask to have the doctor building construction professor paged. If you consider this an emergency, dial or go to your nearest emergency department. NEED HELP? Are you dealing with a violent or abusive relationship? Are you a victim of rape or sexual assult? Call [facility] ([place]) 24 hour Crisis Hotline: 112.527.2767 or 270-255-5707. MANUAL Your Guide to a Healthy manual is now on-line. Visit [email or web address] to download your free copy documented in this encounter [facility] 02-13-2023 Note HNO ID: [id number] Author: Brynn Canchola APRN.CNM Service: ? Author Type: Multi Share Program Coordinator Type: Progress Notes Filed: 02/13/2023 5:26 PM Note Text: Patient completed 1 hour GCT with [facility] Test at [facility]. Results were elevated at 167and she will need to complete a 3 hour test. Please notify her that she can order a 3 hour Fresh Test to use and we can send another order over to [facility] for blood draws. Please discuss with patient. Order placed. Brynn Canchola APRN.CNM [facility] 02-11-2023 Miscellaneous Notes Order faxed to [facility]. Order signed. Please notify patient that she will need to complete at [facility]. Thank you. Brynn Canchola APRN.CNM [facility] lab order to CP to sign documented in this encounter [facility] 02-05-2023 Miscellaneous Notes Alberto Howard is a 27 year old female who presents at 30w3d for a routine visit. Did not complete 1 hour GTC due to emesis. Does not want to try screening again. Discussed option of Fresh Test and she will look into purchasing. Discussed testing of infant after delivery if no maternal screening results or regular blood glucose levels being completed. Patient voiced understanding. Good movement. Denies headache, visual changes, chest pain, shortness of breath, vaginal bleeding, leakage of fluid, or dysuria. Feeling well, no complaints. Size equal to dates. 11 lbs TWG. PTL precautions reviewed. RTC in 2 weeks or sooner if needed. Brynn Canchola APRN.CNM documented in this encounter [facility] 02-05-2023 Instructions Jimmie Worthington Cma - 02/05/2023 11:23 AM EST SEQUENTIAL SCREENINGS The [facility] offers sequential screenings for women who are [...] It will require an appointment with our mine technician. This is not an ultrasound performed [...] the above symptoms, contact our office at [phone] and ask to speak with a nurse. After hours, you can call doctors registry at [phone] OR call [facility] at [phone] and ask to have the doctor building construction professor paged. If you consider this an emergency, dial 10-24- or go to your nearest emergency department. NEED HELP? Are you dealing with a violent or abusive relationship? Are you a victim of rape or sexual assult? Call [facility] ([place]) 24 hour Crisis Hotline: 275.699.9119 or 480-977-3409. MANUAL Your Guide to a Healthy manual is now on-line. Visit [email or web address] Guide to download your free copy documented in this encounter [facility] 01-20-2023 Miscellaneous Notes KJ - VB No. LOF No. CTXS No. Movement: present. Other c/o: No. Medication list reviewed. Physical Exam See Flow Sheet Gen: no accute distress, well appearing Abd: soft, nontender, gravid A/P 28w1d Estimated Date of Delivery: 04/13/23 Labs: 28 week labs Declines Tdap Declines LARC as plans vasectomy PTL precautions reviewed, Kick counts reviewed. Evelyne Russell MD documented in this encounter [facility] 01-20-2023 Instructions s Teodora Mandel - 01/20/2023 10:32 AM EST SEQUENTIAL SCREENINGS The [facility] offers sequential screenings for women who are [...] It will require an appointment with our mine technician. This is not an ultrasound performed [...] the above symptoms, contact our office at [phone] and ask to speak with a nurse. After hours, you can call doctors registry at [phone] OR call [facility] at [phone] and ask to have the doctor building construction professor paged. If you consider this an emergency, dial 9-0 or go to your nearest emergency department. NEED HELP? Are you dealing with a violent or abusive relationship? Are you a victim of rape or sexual assult? Call [facility] ([place]) 24 hour Crisis Hotline: 230.524.7358 or 199-809-8548. MANUAL Your Guide to a Healthy manual is now on-line. Visit [email or web address] Guide to download your free copy documented in this encounter [facility] 12-23-2022 Miscellaneous Notes JERRY-S: Alberto Howard is [...] Rocio Davis APRN.CNM documented in this encounter [facility] 12-23-2022 Instructions Jimmie Worthington Cma - 12/23/2022 10:15 AM EDT SEQUENTIAL SCREENINGS The [facility] offers sequential screenings for women who are [...] It will require an appointment with our mine technician. This is not an ultrasound performed [...] the above symptoms, contact our office at [phone] and ask to speak with a nurse. After hours, you can call doctors registry at [phone] OR call [facility] at [phone] and ask to have the doctor building construction professor paged. If you consider this an emergency, dial 9-1-4 or go to your nearest emergency department. NEED HELP? Are you dealing with a violent or abusive relationship? Are you a victim of rape or sexual assult? Call [facility] ([place]) 24 hour Crisis Hotline: 199.191.6649 or 689-939-5966. MANUAL Your Guide to a Healthy manual is now on-line. Visit [email or web address] Guide to download your free copy documented in this encounter [facility] 11-25-2022 Miscellaneous Notes KJ - No VB/LOF/ctxs. Reports FM. Feeling better with zofran & tolerating PO. Meds reviewed A&P: Anatomy US today Eating disorder - reassured patient that weight gain is normal & healthy Evelyne Russell MD documented in this encounter [facility] 11-25-2022 Instructions Masters Teodora Mandel - 11/25/2022 10:51 AM EDT SEQUENTIAL SCREENINGS The [facility] offers sequential screenings for women who are [...] It will require an appointment with our mine technician. This is not an ultrasound performed [...] the above symptoms, contact our office at [phone] and ask to speak with a nurse. After hours, you can call doctors registry at [phone] OR call [facility] at [phone] and ask to have the doctor building construction professor paged. If you consider this an emergency, dial 9- or go to your nearest emergency department. NEED HELP? Are you dealing with a violent or abusive relationship? Are you a victim of rape or sexual assult? Call [facility] ([place]) 24 hour Crisis Hotline: 664.495.6976 or 610-832-6219. MANUAL Your Guide to a Healthy manual is now on-line. Visit [email or web address] Guide to download your free copy documented in this encounter [facility] 10-13-2022 Miscellaneous Notes Pt notified and copy to L&D Kandy Campos LPN MaterniT 21 results reviewed and are negative. Gender is on report if patient does not desire to know she should not look at results! Thank you. Brynn Canchola APRN.CNM 14w0d Patient viewed her [id number] results on [employer]. Asking for a provider to review and confirm normal results. Can you please review in KJ's absence. Thank you. Sidra Chatterjee RN documented in this encounter [facility] 10-03-2022 Miscellaneous Notes KJ - No VB/LOF/ctxs. She has some nausea but is tolerating PO. Also she has mild & intermittent headaches. A&P: NT with NIPT today PNB today H/o gestational hypertension - advised on 81mg aspirin Headaches - advised on magnesium oxide daily Evelyne Russell MD documented in this encounter [facility] 10-03-2022 Adriana Anderson Ma - 10/03/2022 10:12 AM EDT SEQUENTIAL SCREENINGS The [facility] offers sequential screenings for women who are [...] It will require an appointment with our mine technician. This is not an ultrasound performed [...] the above symptoms, contact our office at [phone] and ask to speak with a nurse. After hours, you can call doctors registry at [phone] OR call [facility] at [phone] and ask to have the doctor building construction professor paged. If you consider this an emergency, dial 9-1-6 or go to your nearest emergency department. NEED HELP? Are you dealing with a violent or abusive relationship? Are you a victim of rape or sexual assult? Call [facility] ([place]) 24 hour Crisis Hotline: 716.482.7840 or 798-718-4639. MANUAL Your Guide to a Healthy manual is now on-line. Visit [email or web address] Guide to download your free copy documented in this encounter [facility] 09-11-2022 Miscellaneous Notes Pt will have done at her next visit. Kandy Campos LPN NIPT ordered Evelyne Russell MD Rocio Davis APRN.CNM sent to [facility] Ob-Church History Teacher Pool Please call patient and offer MFM referral if she desires with NT US due to history of congenital ASD and hydronephrosis. Thanks, Rocio Davis APRN.CNM Spoke with pt and she is wanting to have [id number] done. Pt will then decide from that if she wants MFM appointment. Please advise. Kandy Campos LPN documented in this encounter [facility] 09-03-2022 Note HNO ID: [id number] Author: Rocio Davis APRN.SANJUANA Service: ? Author Type: Multi Share Program Coordinator Type: Progress Notes Filed: 09/10/2022 10:01 PM Note Text: INITIAL OB ASSESSMENT Trench Digger offered: Patient declines. Obstetric History T3 L3 [...] 9 Living: Living Name of Baby 4: Raomne Date: 12/21/19 GA: 38w2d Delivery: Vaginal, Spontaneous [...] use: No Multivitamin with Folic acid: Yes Moravian or heritage: No Would refuse blood transfusion if medically necessary: No Are you currently employed? No Do you have any history of depression, anxiety, PTSD, eating disorders or other mood problems: Yes, PPD. History of undiagnosed eating disorder. Decreased eating, history of throwing up because she thought she was fat. Withholds food then binge eats and throws up. Was seeing [employer] services. Was taking Effexor and this was [...] mouth once angie (more content not included)... [facility] 08-18-2022 Note HNO ID: [id number] Author: Alia Wilson RN Service: ? Author [...] None, Apgar5: None, Living: None, Comments: None [facility] 08-18-2022 History of Present illness Narrative [...] None, Comments: None documented in this encounter [facility] 08-18-2022 Miscellaneous Notes DISTANCE HEALTH VISIT This Team Access Model visit is a phone encounter. It required patient-provider interaction for the medical decision making as documented below. Pt has a history of depression after delivery in 2019. Denies any depression after her other deliveries. She is currently taking Effexor prescribed by Odalis Staples NP in [facility]. Discussed increased risks of depression during [...] hydroureteronephrosis.Patient desires aneuploidy screening. Contact information for [facility] given to patient to check on insurance coverage.Considering genetic carrier screening testing.contact information for [facility] given to patient to check on insurance coverage.Alia Wilson RN documented in this encounter [facility] 08-11-2022 Miscellaneous Notes Please reach out to patient to see if she would like to reschedule appointment. We can discuss medications at that time. Brynn [place] APRN.CNM Patient no longer has an appointment today. Cancelled via Mychart. Please address her medication question. Thank you. LMP 07/11. Patient's antidepressant was changed to Effexor 150 MG once a day 2 weeks ago. Called to ask if this is safe to take in . I scheduled her for an appointment on Thursday to discuss her options as this was unplanned. DEDE Chatterjee RN documented in this encounter [facility] documented as of this encounter (statuses as of 10/03/2022) [facility]10-28[facility] History of Past illness Narrative* Problem Noted [...] left hydroureteronephrosis. She prefers to deliver at [facility] to ensure that the necessary imaging [...] NO longer low lying per ultrasound. Brynn Canchola APRN.CNM 09/08/19 - repeat US ordered - Evelyne Russell MD Subchorionic hemorrhage in first trimester 10/28/2017 [...] travels 07/25/2016 04/20/2017 Overview: 07/25/2016FOB traveled to [facility] the first week of February. Discussed with Dr De Souza and Zika lab work ordered.TKRN documented as of this encounter (statuses as of 10/04/2022) [facility] History of Past illness Narrative* Problem Noted [...] left hydroureteronephrosis. She prefers to deliver at [facility] to ensure that the necessary imaging [...] NO longer low lying per ultrasound. Brynn Canchola APRN.CNM 09/08/19 - repeat US ordered - Evelyne Russell MD Subchorionic hemorrhage in first trimester 10/28/2017 [...] travels 07/25/2016 04/20/2017 Overview: 07/25/2016FOB traveled to [facility] the first week of February. Discussed with Dr De Souza and Zika lab work ordered.TKRN documented as of this encounter (statuses as of 10/13/2022) [facility] History of Past illness Narrative* Problem Noted [...] left hydroureteronephrosis. She prefers to deliver at [facility] to ensure that the necessary imaging [...] NO longer low lying per ultrasound. Brynn Canchola APRN.CNM 09/08/19 - repeat US ordered - Evelyne Russell MD Subchorionic hemorrhage in first trimester 10/28/2017 [...] Overview: 07/25/2016Patient was seen for bleeding in 15. An ultrasound was done that showed an IUP @ 7w1d. She has noted bleeding 3 times since then, one that she considers heavier than spotting, more like a period. She denies any pain. Discussed with Dr De Souza and she ordered an ultrasound. TKRN Patient travels 07/25/2016 04/20/2017 Overview: 07/25/2016FOB traveled to [facility] the first week of February. Discussed with Dr De Souza and Zika lab work ordered.TKRN documented as of this encounter (statuses as of 11/26/2022) [facility] History of Past illness Narrative* Problem Noted [...] left hydroureteronephrosis. She prefers to deliver at [facility] to ensure that the necessary imaging [...] NO longer low lying per ultrasound. Brynn Canchola APRN.WANDERM 09/08/19 - repeat US ordered - Evelyne Russell MD Subchorionic hemorrhage in first trimester 10/28/2017 [...] travels 07/25/2016 04/20/2017 Overview: 07/25/2016FOB traveled to [facility] the first week of February. Discussed with Dr De Souza and Zika lab work ordered.TKRN documented as of this encounter (statuses as of 12/23/2022) [facility] History of Past illness Narrative* Problem Noted [...] left hydroureteronephrosis. She prefers to deliver at [facility] to ensure that the necessary imaging can be performed. Plan: After , her baby will need: - Prophylatic abx (amoxicllin 20 mg/kg) daily - Circumcision - RBUS prior to discharge - will eventually need a VCUG Rocio Davis APRN.SANJUANA Followed for pyelectasis. 11/29/2019 noted to have [...] NO longer low lying per ultrasound. Brynn Canchola APRN.CNM 09/08/19 - repeat US ordered - Evelyne Russell MD Subchorionic hemorrhage in first trimester 10/28/2017 [...] travels 07/25/2016 04/20/2017 Overview: 07/25/2016FOB traveled to [facility] the first week of February. Discussed with Dr De Souza and Zika lab work ordered.TKRN documented as of this encounter (statuses as of 01/20/2023) [facility] History of Past illness Narrative* Problem Noted Date Diagnosed Date Resolved Date Normal labor 12/21/2019 10/03/2022 renal anomaly, single gestation 11/29/2019 10/03/2022 Overview: 12/06/19-Met with pediatric nephrology-Note from Dr. Nichelle Aylaa 24 yo mother 36 weeks preg who presents after a US showed left hydroureteronephrosis and possible ureterocele. Based on our interpretation, left hydroureteronephrosis is present but ureterocele is not clearly visualized. Pt was counseled on the possibility of obstruction vs reflux as the cause of the left hydroureteronephrosis. She prefers to deliver at [facility] to ensure that the necessary imaging [...] NO longer low lying per ultrasound. Brynn Canchola APRN.CNM 09/08/19 - repeat US ordered - Evelyne Russell MD Subchorionic hemorrhage in first trimester 10/28/2017 [...] travels 07/25/2016 04/20/2017 Overview: 07/25/2016FOB traveled to [facility] the first week of February. Discussed with Dr De Souza and Zika lab work ordered.TKRN documented as of this encounter (statuses as of 02/06/2023) [facility] History of Past illness Narrative* Problem Noted [...] left hydroureteronephrosis. She prefers to deliver at [facility] to ensure that the necessary imaging [...] NO longer low lying per ultrasound. Brynn Canchola APRN.CNM 09/08/19 - repeat US ordered - Evelyne Russell MD Subchorionic hemorrhage in first trimester 10/28/2017 [...] Overview: 07/25/2016Patient was seen for bleeding in 05/15. An ultrasound was done that showed an IUP @ 7w1d. She has noted bleeding 3 times since then, one that she considers heavier than spotting, more like a period. She denies any pain. Discussed with Dr De Souza and she ordered an ultrasound. TKRN Patient travels 07/25/2016 04/20/2017 Overview: 07/25/2016FOB traveled to [facility] the first week of February. Discussed with Dr De Souza and Zika lab work ordered.TKRN documented as of this encounter (statuses as of 02/09/2023) [facility] History of Past illness Narrative* Problem Noted [...] left hydroureteronephrosis. 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 Therapy informed. Delivery location change likely not indicated. will need evaluation. Patient informed of management and referrals. Low-lying placenta 08/12/2019 Overview: 11/03/19- NO longer low lying per ultrasound. Brynn Canchola APRN.WANDERM 09/08/19 - repeat US ordered - Evelyne Russell MD Subchorionic hemorrhage in first trimester 10/28/2017 [...] travels 07/25/2016 04/20/2017 Overview: 07/25/2016FOB traveled to [facility] the first week of February. Discussed with Dr De Souza and Zika lab work ordered.TKRN documented as of this encounter (statuses as of 02/12/2023) [facility] History of Past illness Narrative* Problem Noted [...] left hydroureteronephrosis. She prefers to deliver at [facility] to ensure that the necessary imaging [...] NO longer low lying per ultrasound. Brynn Canchola APRN.CNM 09/08/19 - repeat US ordered - Evelyne Russell MD Subchorionic hemorrhage in first trimester 10/28/2017 [...] Overview: 07/25/2016Patient was seen for bleeding in 15. An ultrasound was done that showed an IUP @ 7w1d. She has noted bleeding 3 times since then, one that she considers heavier than spotting, more like a period. She denies any pain. Discussed with Dr De Souza and she ordered an ultrasound. TKRN Patient travels 07/25/2016 04/20/2017 Overview: 07/25/2016FOB traveled to [facility] the first week of February. Discussed with Dr De Souza and Zika lab work ordered.TKRN documented as of this encounter (statuses as of 04/01/2023) [facility] History of Past illness Narrative* Problem Noted [...] travels 07/25/2016 04/20/2017 Overview: 07/25/2016FOB traveled to [facility] the first week of February. Discussed with Dr De Souza and Zika lab work ordered.TKRN documented as of this encounter (statuses as of 08/12/2022) [facility] History of Past illness Narrative* Problem Noted [...] travels 07/25/2016 04/20/2017 Overview: 07/25/2016FOB traveled to [facility] the first week of February. Discussed with Dr De Souza and Zika lab work ordered.TKRN documented as of this encounter (statuses as of 08/19/2022) [facility] History of Past illness Narrative* Problem Noted [...] travels 07/25/2016 04/20/2017 Overview: 07/25/2016FOB traveled to [facility] the first week of February. Discussed with Dr De Souza and Zika lab work ordered.TKRN documented as of this encounter (statuses as of 09/11/2022) [facility] History of anomaly in prior , currently - Primary with other poor obstetric history History of depression History of gestational hypertension Family history of defects Family history of congenital anomalies Patient request for diagnostic testing Other specified examination [facility] Encounter for supervision of [...] Unspecified high-risk [facility] [place] [facility] Diagnosis 24 weeks gestation of - Primary state, incidental Supervision of high risk in second trimester Unspecified high-risk documented in this encounter [facility] note* Diagnosis Supervision of high risk in third trimester- Primary Unspecified high-risk 28 weeks gestation of state, incidental [facility] [place] [facility] Diagnosis 30 weeks gestation of - Primary state, incidental Supervision of high risk in third trimester Unspecified high-risk [facility] [place] [facility]* Diagnosis 38 weeks gestation of - Primary state, incidental Supervision of high risk in third trimester Unspecified high-risk Group beta Strep positive Eating disorder, unspecified type documented in this encounter [facility] Summary Purpose Family History No Family History Records FoundNo Family History Records FoundNo Family History Records FoundNo Family History Records FoundNo Family History Records Found Advance Directives No Advanced Directives Records FoundNo Advanced Directives Records FoundNo Advanced Directives Records FoundNo Advanced Directives Records FoundNo Advanced Directives Records Found Procedure Findings Note HNO ID: [id number] Author: Glenn Villafuerte Service: ? Author Type: Nurse Office Administrator Type: Anesthesia Procedure Notes Filed: 12/21/2019 11:20 AM Note Text: ANESTHESIOLOGY PROCEDURE NOTE Epidural Block General Information Procedure Start Time/Medication Administration: 12/21/2019 10:46 AM Patient location during procedure: [facility] room Timeout Performed Pre-procedure: timeout performed Consent Obtained: Yes Patient identity confirmed: arm band, care freight team associate and patient Reason for block: labor epidural Staffing Anesthesiologist: Kyle Slaughter SRNA: Zoila Lira (Srna) Performed by: SHAMAR Preparation Sterility Preparation: hand [...] Date Diagnosed Date [facility] - [facility] 09/03/2022 Education - [place] 09/03/2022 Problem Noted Date Diagnosed Date [facility] - [facility] 09/03/2022 Education - [place] 09/03/2022 Problem Noted Date Diagnosed Date [facility] 09/03/2022 Education - [place] 09/03/2022 Additional Source Comments INFORMATION SOURCE (unrecogn ized section and content) DATE CREATED AUTHOR AUTHOR'S ORGANIZ ATION 10/15/2017 [facility] DATE CREATED AUTHOR AUTHOR'S ORGANIZ ATION 12/26/2019 [facility] DATE CREATED AUTHOR AUTHOR'S ORGANIZ ATION 09/20/2020 [facility] DATE CREATED AUTHOR AUTHOR'S ORGANIZ ATION 04/02/2023 [facility] Source Comments (unrecognize d section and content) In the event this informatio n is protected by the Federal Confidentiality of Alcohol and Drug Abuse Patient Records regulations: The Federal rules restrict any use of the information to criminally investigate or prosecute any alcohol or drug abuse patient.[facility] the event this information is protected by the Federal Confidentiality of Alcohol and Drug Abuse Patient Records regulations: The Federal rules restrict any use of the information to criminally investigate or prosecute any alcohol or drug abuse patient.[facility] the event this information is protected by the Federal Confidentiality of Alcohol and Drug Abuse Patient Records regulations: The Federal rules restrict any use of the information to criminally investigate or prosecute any alcohol or drug abuse patient.[facility] the event this information is protected by the Federal Confidentiality of Alcohol and Drug Abuse Patient Records regulations: The Federal rules restrict any use of the information to criminally investigate or prosecute any alcohol or drug abuse patient.[facility] the event this information is protected by the Federal Confidentiality of Alcohol and Drug Abuse Patient Records regulations: The Federal rules restrict any use of the information to criminally investigate or prosecute any alcohol or drug abuse patient.[facility] the event this information is protected by the Federal Confidentiality of Alcohol and Drug Abuse Patient Records regulations: The Federal rules restrict any use of the information to criminally investigate or prosecute any alcohol or drug abuse patient.[facility] the event this information is protected by the Federal Confidentiality of Alcohol and Drug Abuse Patient Records regulations: The Federal rules restrict any use of the information to criminally investigate or prosecute any alcohol or drug abuse patient.[facility] the event this information is protected by the Federal Confidentiality of Alcohol and Drug Abuse Patient Records regulations: The Federal rules restrict any use of the information to criminally investigate or prosecute any alcohol or drug abuse patient.[facility] the event this information is protected by the Federal Confidentiality of Alcohol and Drug Abuse Patient Records regulations: The Federal rules restrict any use of the information to criminally investigate or prosecute any alcohol or drug abuse patient.[facility] the event this information is protected by the Federal Confidentiality of Alcohol and Drug Abuse Patient Records regulations: The Federal rules restrict any use of the information to criminally investigate or prosecute any alcohol or drug abuse patient.[facility] the event this information is protected by the Federal Confidentiality of Alcohol and Drug Abuse Patient Records regulations: The Federal rules restrict any use of the information to criminally investigate or prosecute any alcohol or drug abuse patient.[facility] the event this information is protected by the Federal Confidentiality of Alcohol and Drug Abuse Patient Records regulations: The Federal rules restrict any use of the information to criminally investigate or prosecute any alcohol or drug abuse patient.[facility] the event this information is protected by the Federal Confidentiality of Alcohol and Drug Abuse Patient Records regulations: The Federal rules restrict any use of the information to criminally investigate or prosecute any alcohol or drug abuse patient.[facility] Reason for Visit (unrecogniz ed section and content) Reason Comments Care Reason Comments Orders Reason Onset Date Comments Care 10/03/2022 Reason Comments US Specialty Diagnoses / Procedures Referred By Contizaiah t Referred To Contact [facility] Diagnoses care, antepartum Procedures NUCHAL TRANSLUCENCY WHI US NUCHAL TRANSLUCENCY 1ST GESTATION Rocio Davis APRN.SANJUANA [address] [place] [address] [facility] [address] [place] [address] Referral ID Status Reason Start Date Expiration Date V isits Requested Visits Authorized [id number] Closed Auto-Generate d Referral 09/03/2022 09/03/2023 1 1 Reason Comments Results [id number] Reason Onset Date Comments Care 11/25/2022 Reason Onset Date Comments Care 12/23/2022 Reason Onset Date Comments Care 01/20/2023 Reason Onset Date Comments Care 02/05/2023 Reason Onset Date Comments Care 04/01/2023 FOR RECORDS PERTAINING TO PATIENTS WHO ARE [...] BE BASED ON THE PRIMARY CLINICAL RECORDS. [facility] [employer] by [employer], [facility]. provides no warranty or guarantee of the accuracy or completeness of information in this document.
[2023-04-06] MEDS: Lactated Ringers 1,000 ML 50 ML IV (07:40)
[2023-04-06] MEDS: Penicillin G Pot 5,000,000 UNITS in 0.9% Normal Saline (100mL MB+) 100 ML 150 UNITS IV (07:45)
[2023-04-06] MEDS: Oxytocin 15 Units/NS 250ml 15 UNITS/250 ML IV.SOLN 2 UNITS IV (08:04)
[2023-04-06 08:30] LABS: Basophil# 0.04 X10^3/uL; Basophil% 0.4 % (0-1); Eosinophil# 0.07 X10^3/uL; Eosinophils% 0.7 % (0-5); Hematocrit 36.3 % (37-47); Hemoglobin 12.8 g/dL (12.0-15.0); Lymphocyte % 25.6 % (19-41); Mean Corp Hgb Conc 35.3 g/dL (32-36); Mean Corpuscular Hgb 32.7 pg (27.0-32.0); Mean Corpuscular Volume 92.6 fL (81-99); Mean Platelet Vol. 9.5 fl (6.2-12.0); Monocyte# 0.77 X10^3/uL; Monocyte% 8.2 % (0-10); NRBC Flagged by Analyzer 0 % (0-5); Neutrophil # 5.98 X10^3/uL (2.7-7.7); Neutrophil % 63.9 % (47-70); Platelet Count 168 K/mm3 (150-450); RBC Distribution Width CV 12.5 % (11.6-14.6); RBC Distribution Width SD 41.3 fl (35.1-43.9); Red Blood Count 3.92 M/mm3 (4.2-5.4); White Blood Count 9.4 K/mm3 (4.4-11.0)
[2023-04-06] MEDS: 0.9% Normal Saline Single 100 ML IV.SOLN. INTRA-UTER (08:35)
--- NOTE | 2023-04-06 08:38 | PCM.HP.OB ---
HPI - General General Date of Admission: 04/06/23 HPI Narrative ALBERTO GÓMEZ, is a 27 F who presents for elective induction of labor at 39 weeks. . Maternal Data Information MARY Calculator Estimated Delivery Date Method Current WG Current Estimate 04/13/23 Manual 39w 0d PFSH PFS Medical History (Updated 04/06/23 @ 08:42 by Anabelle Saenz) Anxiety Depression Eating disorder depression Home Medications vits no.130-ferrous fum 27 mg iron-folic acid 800 mcg tablet ( Vitamin) 1 ea PO DAILY prental 02/18/17 [History Last Taken 04/05/23 08:46] aspirin 81 mg chewable tablet (Henry Chewable Low Dose Aspirin) 1 tab PO DAILY 04/06/23 [History Last Taken 04/05/23 08:47] Allergy/AdvReac Type Severity Reaction Status Date / Time No Known Allergies Allergy Verified 04/06/23 07:24 Social History Smoking Status: Never smoker History Elective abortions Hx Para 3 Spontaneous abortions Hx # Term Pregnancies Ectopic pregnancies Hx # Pregnancies Multiple births # of living children NST FHR Rate Baby A Baseline: 130 Variability:: Moderate Accelerations:: 15 x 15 Decelerations:: None FHR Category:: Category I Uterine Activity:: Irregular, mild ROS Constitutional Constitutional: Reports systems reviewed and no addt'l complaints, except as documented; Denies headache(s) Eyes Eyes: Denies acute decrease in peripheral vision, blurry vision or change in vision ENT HEENT: Reports systems reviewed and no addt'l complaints, except as documented Cardiovascular Cardiovascular: Denies chest pain or dizziness Respiratory/Chest Respiratory/Chest: Denies cough, dyspnea, dyspnea on exertion, shortness of breath at rest or shortness of breath with exertion Gastrointestinal Gastrointestinal: Denies abdominal pain, diarrhea, nausea or vomiting Genitourinary Genitourinary: Denies abdominal discomfort Musculoskeletal Musculoskeletal: Denies limited range of motion Integumentary Integumentary: Reports systems reviewed and no addt'l complaints, except as documented Neurologic Neurologic: Reports systems reviewed and no addt'l complaints, except as documented Psychiatric Psychiatric: Reports systems reviewed and no addt'l complaints, except as documented Endocrine Endocrinology: Reports systems reviewed and no addt'l complaints, except as documented Hematologic/Lymphatic Hematologic/Lymphatic: Reports systems reviewed and no addt'l complaints, except as documented Allergic/Immunologic Allergic/Immunologic: Reports systems reviewed and no addt'l complaints, except as documented Vital Signs Vital Signs Vital Signs: 04/06/23 07:28 04/06/23 07:28 04/06/23 08:06 Temperature Temperature Source Temporal Pulse Rate 90 Blood Pressure 105/73 BP Systolic 105 BP Diastolic 73 Pulse Ox 04/06/23 08:06 04/06/23 08:06 Temperature 98.0 F Temperature Source Pulse Rate Blood Pressure BP Systolic BP Diastolic Pulse Ox 99 Weight Weight: 145 lb Body Mass Index (BMI) 23.3 Physical Exam Const alert and oriented x3 General Appearance: cooperative Orientation / Consciousness: awake, oriented to person, oriented to place and oriented to time Exam Limitations: no limitations HEENT normocephalic Head and Scalp: normal to inspection, normocephalic and atraumatic Face and Sinus: normal facial exam Eyes General Eye: normal appearance of both eyes Neck full ROM Chest Chest: symmetrical chest wall rise Resp normal respiratory effort and normal air movement Auscultation: clear to auscultation bilaterally Cardio regular rate, regular rhythm, S1 normal heart sound, S2 normal heart sound, no murmurs, no rub, no gallops and no clicks GI normal to inspection, nondistended, normoactive bowel sounds and non-tender appearance of the vagina normal Bladder / Kidney Exam: no CVA tenderness Manual OB Exam: estimated gestational size appropriate, presentation cephalic, dilated 2cm, effaced 50, station -2 and other Cordero catheter inserted through cervical os. 30ml NS instilled. Patient tolerated procedure Amniotic Fluid: no amniotic fluid noted Back/Spine normal ROM Extremity normal to inspection and full ROM Skin no rashes or lesions noted Neuro oriented x3 and moves all extremities Sensorium / Orientation: awake, alert and oriented to person Motor Exam: clonus absent Deep Tendon Reflexes: Rt Patellar (L4): 2+ and Lt Patellar (L4): 2+ Labs Labs Labs: Blood Type O POSITIVE Antibody Screen NEGATIVE Hct 36.3 % (37-47) L Hgb 12.8 g/dL (12.0-15.0) Syphilis Total Ab Non-reactive Glucose 1 Hr 50 gm 140 mg/dL (70-140) Gest Glucose Tolerance MG/DL Rhogam given: No GBS positive Rubella immune Hepatitis B negative Hepatitis C negative HIV negative Glenda negative Trichomonas negative GC/CT negative RPR negative Assessment & Plan (1) 39 weeks gestation of : (2) Elective induction of labor planned: PLAN: Plan 1. Admit to L&D 2. Routine labs 3. Continuous EFM per protocol 4. Cordero Bulb for Cervical ripening with Pitocin per protocol 5. Epidural for pain management 6. GBS positive PCN 5 million IV x 1 dose then PCN 2.5 million q4h until delivery 7.Dr. Barr collaborative physician notified of induction. Updated on patient above status, assessment, and plan.
[2023-04-06 09:10] LABS: Syphilis Antibodies Non-reactive
[2023-04-06] MEDS: LACTATED RINGERS 500 ML 999 ML IV (10:07)
[2023-04-06] MEDS: fentaNYL-bupivacaine (epidural) 100 ML BAG EPIDURAL (11:32)
[2023-04-06] MEDS: Penicillin G 3,000,000 Units 50 ML 100 UNITS IV ×2 (11:47→15:47)
--- NOTE | 2023-04-06 12:07 | PN.OBGYN_ITS ---
Subjective Subjective Resting comfortably in bed with epidural on left side. Partner at bedside Objective Data Objective Data Vital Signs: Vital Signs Temp Pulse BP Pulse Ox 99.0 F 76 97/52 L 97 04/06/23 11:40 04/06/23 11:54 04/06/23 11:54 04/06/23 11:49 Weight: 145 lb Body Mass Index (BMI) 23.3 Intake & Output: Intake and Output for Last 24 Hours 04/04/23 04/05/23 04/06/23 23:59 23:59 23:59 Intake Total 814.30 / 814.30 Balance 814.30 / 814.30 Lab / Micro Data 04/06/23 07:40 Labs: Laboratory Results - last 24 hr 04/06/23 07:40: WBC 9.4, RBC 3.92 L, Hgb 12.8, Hct 36.3 L, MCV 92.6, MCH 32.7 H, MCHC 35.3, RDW Std Deviation 41.3, RDW Coeff of Konstantin 12.5, Plt Count 168, MPV 9.5, Immature Gran % (Auto) 1.200 H, Neut % (Auto) 63.9, Lymph % (Auto) 25.6, [place] % (Auto) 8.2, Eos % (Auto) 0.7, Baso % (Auto) 0.4, Absolute Neuts (auto) 6.0, Absolute Lymphs (auto) 2.40, Nucleated RBC % 0, Syphilis Total Ab Non- reactive, Blood Type O POSITIVE, Antibody Screen NEGATIVE Physical Exam Manual OB Exam: estimated gestational size, dilated 4-5cm, effaced 50% and station -2 Amniotic Fluid: clear amniotic fluid NST FHR Rate Baby A Baseline: 130 Variability:: Moderate Accelerations:: 15 x 15 Decelerations:: None FHR Category:: Category I Uterine Activity:: Every 2.5 minute, strong, Pitocin at 4 mus Assessment & Plan (1) Elective induction of labor planned: (2) 39 weeks gestation of : PLAN: Plan Continue with active management, progressing Epidural for pain management AROM collaborative physician. Notified of above assessment and plan.
[2023-04-06] MEDS: Lactated Ringers 1,000 ML 200 ML IV (12:53)
--- NOTE | 2023-04-06 16:39 | EX.PCM.OBRPT ---
Assessment & Plan (1) (spontaneous vaginal delivery): (2) GBS carrier: (3) Family history of defects: COMMENT: son born with ASD. Last child born with Hydroureteronephosis (4) History of gestational hypertension: (5) History of depression: (6) History of eating disorder: Maternal Data Information MARY Calculator Estimated Delivery Date Method Current WG Current Estimate 04/13/23 Manual 39w 0d Vaginal Delivery Maternal Presentation Maternal Presentation: Elective Induction Type of Induction: Pitocin, Cordero Bulb and Amniotomy Operative Information Date of Procedure: 04/06/23 Pre-Operative Diagnosis: Elective Induction of Labor Post-Operative Diagnosis: Spontaneous vaginal delivery Surgery / Procedure Performed: Spontaneous Vaginal Delivery Type of Anesthesia: Epidural Estimated Blood Loss: 100 ml Time of Delivery: 16:06 Findings Presentation: Vertex and CLIFTON Amniotic Membrane Rupture Type: Artificial Time of Membrane Rupture: 1205 Amniotic Fluid Description: Clear Placental Delivery Description: Spontaneous Placenta Disposition: [facility] Cord Vessel Description: 3 Vessels Cord Entanglement: None Infant A Gender: Female (1 minute): 8 (5 minute): 9 Delayed Cord Clamping: Yes Post Vaginal Delivery Medications Given After Delivery: IV Pitocin Episiotomy Description: None Laceration: None Complication Complications: None
[2023-04-06] MEDS: Oxytocin 15 Units/NS 250ml 15 UNITS/250 ML IV.SOLN 83 UNITS IV (16:40)
--- NOTE | 2023-04-06 16:48 | EX.PCM.OBRPT ---
Maternal Data Information MARY Calculator Estimated Delivery Date Method Current WG Current Estimate 04/13/23 Manual 39w 0d Vaginal Delivery Maternal Presentation Maternal Presentation: Elective Induction Type of Induction: Pitocin and Cordero Bulb Operative Information Date of Procedure: 04/06/23 Pre-Operative Diagnosis: Elective Induction of labor Post-Operative Diagnosis: of live female Surgery / Procedure Performed: Spontaneous Vaginal Delivery Type of Anesthesia: Epidural Estimated Blood Loss: 100 Time of Delivery: 16:06 Findings Description of Procedure: Progressed to complete with urge to push. Epidural for pain management. of viable female over intact perineum. APGARS 8, 9 respectively. head delivered with body immediately forthcoming. Placed on maternal abdomen, strong cry. Mouth and nares wiped for secretions. Pitocin started for active 3rd stage management. Cord doubly clamped and cut by FOB after pulsations ceased, delayed cord clamping. Placenta delivered intact via villareal, 3 vessel cord intact. Perineum inspected and intact. Fundus firm and hemostasis achieved. EBL 100 ml. Mom and baby stable, planning to breastfeed. Family bonding well. Dr. Barr notified of delivery. Delivery assisted by XIMENA Harmon Presentation: CLIFTON Amniotic Membrane Rupture Type: Artificial Time of Membrane Rupture: 1205 Amniotic Fluid Description: Clear Placental Delivery Description: Spontaneous Placenta Disposition: [facility] Cord Vessel Description: 3 Vessels Cord Entanglement: None A Gender: Female (1 minute): 8 (5 minute): 9 Delayed Cord Clamping: Yes Post Vaginal Delivery Medications Given After Delivery: IV Pitocin Episiotomy Description: None Laceration: None Complication Complications: None
[2023-04-07] VITALS (7 sets, daily range): BP systolic 108–121; BP diastolic 59–83; PULSE 74–77; RESP 14–16; TEMP 36.3–36.6; O2SAT 97–99
[2023-04-07 04:34] LABS: Absolute Lymphocyte Count 3.23 X10^3/uL (0.83-4.51); Absolute Neutrophil Count 7.3 X10^3/uL (2.0-7.7); Basophil# 0.04 X10^3/uL; Basophil% 0.3 % (0-1); Eosinophil# 0.11 X10^3/uL; Hematocrit 34.7 % (37-47); Hemoglobin 12.1 g/dL (12.0-15.0); Lymphocyte # 3.23 X10^3/ul (0.83-4.51); Lymphocyte % 28.1 % (19-41); Mean Corp Hgb Conc 34.9 g/dL (32-36); Mean Corpuscular Hgb 32.2 pg (27.0-32.0); Mean Corpuscular Volume 92.3 fL (81-99); Mean Platelet Vol. 9.2 fl (6.2-12.0); Monocyte# 0.73 X10^3/uL; Monocyte% 6.4 % (0-10); NRBC Flagged by Analyzer 0 % (0-5); Neutrophil # 7.27 X10^3/uL (2.7-7.7); Neutrophil % 63.3 % (47-70); Platelet Count 151 K/mm3 (150-450); RBC Distribution Width CV 12.5 % (11.6-14.6); RBC Distribution Width SD 41.8 fl (35.1-43.9); Red Blood Count 3.76 M/mm3 (4.2-5.4); White Blood Count 11.5 K/mm3 (4.4-11.0)
[2023-04-07] MEDS: Ibuprofen 600 MG Tablet PO (08:02)
--- NOTE | 2023-04-07 11:14 | PCM.DC ---
Discharge Instructions Activity May resume sexual activity in: 6 weeks Follow Up Care Please Follow Up With: Michelle Davis CNM When: Follow up with our office in 1-2 and 6 weeks or as needed. [phone] Call or send a Busportal message Test Results: Test results from this visit will be discussed in further detail at your follow-up appointment, if applicable. Discharge Plan Admission Admit Date/Time: 04/06/23 07:00 Primary Reason for Your Visit: Vaginal delivery Attending Provider: Michelle Davis Primary Care Provider: Care Physician,Brook Primary Discharge Orders/Prescriptions Prescriptions: Continued Vitamin 1 EACH tablet 1 ea PO DAILY Discontinued aspirin [Henry Chewable Aspirin] 81 mg tablet,chewable 1 tab PO DAILY Referrals / Follow Up: Care Physician,No Primary [Primary Care Provider] - Disposition Disposition (needs filled in before D/C Order can be placed): Home, Self Care
--- NOTE | 2023-04-07 11:15 | PN.OBGYN_ITS ---
Subjective Subjective pain well controlled, averabge lochia. Objective Data Objective Data Vital Signs: Vital Signs Temp Pulse Resp BP Pulse Ox O2 Del Method 97.4 F L 77 16 119/83 H 97 Room Air 04/07/23 07:43 04/07/23 07:43 04/07/23 07:43 04/07/23 07:43 04/07/23 07:43 04/07/23 07:43 Oxygen Delivery Method Room Air Weight: 65.771 kg Body Mass Index (BMI) 23.3 Intake & Output: Intake and Output for Last 24 Hours 04/05/23 04/06/23 04/07/23 23:59 23:59 23:59 Intake Total 2817.10 / 2817.10 Output Total 1600 / 1780 180 / 180 Balance 1217.10 / 1037.10 -180 / -180 Lab / Micro Data 04/07/23 04:20 Labs: Laboratory Results - last 24 hr 04/07/23 04:20: WBC 11.5 H, RBC 3.76 L, Hgb 12.1, Hct 34.7 L, MCV 92.3, MCH 32.2 H, MCHC 34.9, RDW Std Deviation 41.8, RDW Coeff of Konstantin 12.5, Plt Count 151, MPV 9.2, Immature Gran % (Auto) 0.900, Neut % (Auto) 63.3, Lymph % (Auto) 28.1, Mobile % (Auto) 6.4, Eos % (Auto) 1.0, Baso % (Auto) 0.3, Absolute Neuts (auto) 7.3, Absolute Lymphs (auto) 3.23, Nucleated RBC % 0 Physical Exam Const alert and no apparent distress Narrative: Fundus firm, below umbilicus. Assessment & Plan (1) (spontaneous vaginal delivery): PLAN: PPD#1 and doing well patient doing well, desires d/c home if ok w/ ped routine f/u I spent 16 min rounding and on discharge of this patient
--- NOTE | 2023-04-07 16:06 | CASEMGMT ---
Social Work Assessment Labor and Delivery Unit Patient Address:[address] [place] [address] Phone number:b [phone] Date of Referral: 04/06/23 Time of Referral:? 1915 Referred By: Michelle Davis Date of Intervention: ??04/07/23 Time of Intervention:? 1419 Reason for Referral:? history of anxiety and depression Sw completed chart review and acknowledges social work consult due to maternal history of anxiety and depression. Sw presented to bedside and introduced self to mother of baby (JERI Hall) and explained sw role during hospitalization. MOB also had visitor present, to which it was ok for sw to continue to meet with MOB and complete assessment. History obtained from: medical records, MOB Household composition: Currently residing in the family home is MOB, father of baby (CARLOS Bansal), baby and their three older children (Nichelle: 6 years old, Ruben: 4 years old and Ramone: 3 years old). MOB denies any issues or concerns with their housing at this time. Patient's parent/guardian status:? ?MOB states that she and FOB met while she was cleaning his mother's house. MOB states that they have been together for 7 years. MOB denies any issues or concerns of domestic violence or intimate partner violence. Medical History: ?ZBIGNIEW is 4, para 3- now 3 following labor and delivery of . ZBIGNIEW received routine care during with [facility]. ZBIGNIEW delivered baby on 04/06/23 via vaginal delivery at 39 weeks gestation. Baby girl, named Tiana Padron, was born weighing 6lb 16oz and her apgars were 8 and 9 at one and five minutes of life, respectfully. Baby will be followed by Dr. James for pediatrics. ZBIGNIEW is breast feeding and states that it is going well. Educational Status:? MOB states that she grew up [place], but left her family prior to meeting FOB. MOB states that as is custom in their culture she only went to school through grade 8. MOB states that FODae graduated from high school and is currently in college courses for becoming a city surveyor. . Financial Status: IVELISSE is employed in construction. Infant Supplies:?? MOB states that they have obtained all necessary baby supplies, including: a car seat, safe sleep space, clothes, diapers and wipes. Childcare/Caregiver(s):? ZBIGNIEW will be primary caregiver to baby along with IVELISSE when he is not at work or at school. MOB states that paternal grandparents are also available to help if necessary. Transportation:?Both parents have their drivers license and reliable means of transportation. No barriers at this time. ? Programs/Agencies Involved: ??Parents are not connected to any financial community resources. ? Children Services/Legal Issues:??? No history of involvement. No issues or concerns warranting referral to be made at this time. Behavioral Health Issues: ??Mental Health History:?ZBIGNIEW states that IVELISSE has not been diagnosed with any mental health diagnoses. ZBIGNIEW sates that she has been diagnosed with anxiety, depression PPD and an eating disorder. ZBIGNIEW states that she gained and lost weight following her last / delivery of Ramone, and she was nervous to gain weight this because she does not like how it feels. ZBIGNIEW stated that she also experienced depression following the delivery of Ramone and that may have also contributed to her eating disorder. ZBIGNIEW states that she was connected to counseling and is familiar with resources that are available to her to assist in her mental health symptoms. ?? Substance Use History:?MOB denies substance use prior to and during . ? Family History:??MOB denies any family history of addiction and mental health diagnoses.?? Drug Screens: ??No drug screens observed during chart review. Family/Social Stressors:? ZBIGNIEW denies any issues or concerns at this time. Support Systems: ZBIGNIEW states that IVELISSE, his parents and her friend are her biggest supports at this time. Depression/Shaken Baby/Safe Sleeping:? Sw edcuated MOB on signs and symptoms of baby blues and depression and anxiety. MOB expressed understanding. Sw educated MOB on shaken baby prevention and ABCs of safe sleep. MOB expressed understanding. MOB completed [place] Depression Scale and her score was a 7. Sw provided list of resources that are local to MOB. ASSESSMENT:? MOB and baby admitted following labor and delivery. MOB made and maintained eye contact during assessment.MOB participated in completion of psychosocial assessment. MOB with mental health history that includes history of depression and an eating disorder. MOB with counseling history and access to mental health supports. PLAN:? MOB and baby to be discharged when medically ready. ?No other services requested or indicated. Dominik Dover, SHEET ROCKER, DRY HOUSE ATTENDANT
== END 2023-04-07 17:43 | disposition home or self-care (01) | DRG 807 ==
PROVIDERS: Admitting Provider Advanced Practice Midwife; Visit Provider Advanced Practice Midwife
DX: O99.824 Streptococcus B carrier state complicating childbirth (principal); Z37.0 Single live birth; Z3A.39 39 weeks gestation of pregnancy; Z79.82 Long term (current) use of aspirin
CPT/HCPCS: 59025; 59050; 85025; 86780; 86850; 86900; 86901; 99221; J7120; G0378